=== PATIENT | female | born 1945 | race Caucasian/White ===

== ENCOUNTER → 2018-07-06 | Day surgery (SDC) | payer OTHER ==
[2018-06-26 15:42] LABS: BASOPHILS # (AUTO) 0.1 (0.0-0.1); BASOPHILS % 1.1 % (0.0-1.0); EOSINOPHILS # (AUTO) 0.2 (0.0-0.4); HEMATOCRIT 37.2 % (34.2-44.1); LYMPHOCYTES # (AUTO) 2.1 (1.0-3.2); LYMPHOCYTES % 22.8 % (18.0-39.1); MEAN CORPUSCULAR HEMOGLOBIN 29.4 pg (28-32); MEAN CORPUSCULAR HGB CONC 32.3 g/dL (31-35); MEAN CORPUSCULAR VOLUME 91.2 fL (81-99); MONOCYTES # (AUTO) 0.8 (0.2-0.8); MONOCYTES % 8.3 % (4.4-11.3); NEUTROPHILS % 65.5 % (38.7-80.0); PLATELET COUNT 224 x10e3/uL (140-360); RED BLOOD COUNT 4.08 x10e6/uL (3.6-5.1); RED CELL DISTRIBUTION WIDTH 13.5 % (11.7-14.4)
[2018-06-26 16:00] LABS: ANION GAP 15.6 mmol/L (8-16); CALCIUM 10.6 mg/dL (8.4-10.2); CREATININE, SERUM 1.01 mg/dL (0.57-1.11); POTASSIUM 4.6 mmol/L (3.5-5.1)
[~2018-07-06] MED LIST: AMLODIPINE BESYL5 MG PO; ASPIR 8181 MG PO; ASPIRIN81 MG PO; BENEFIBER1 EAC1 PO; BUPROPION XL150 MG PO; CENTRUM SILVER1 EAC1 PO; CHONDR SU A NA/HYALUR SOD 1 EACH KIT IO ONE; CITRACAL-VIT D1 EAC1 PO; CLARITIN10 M3 PO; CLARITIN10 MG PO; CYCLOPENTOLATE HCL 2% OPTH SOLN 2 ML BTL OP ONE; EPINEPHRINE HCL INJ 1 MG/ML AMP ONE; FENOFIBRATE PO; FENTANYL CITRATE/PF 100MCG/2 ML INJ ONE; FISH OIL 1,0001 EAC1 PO; FISH OIL 1,0001 EAC2 PO; GATIFLOXACIN(OPTH) 5 ML LIQD ONE; GYNODIOL0.5 MG PO; LEVSIN0.125 MG PO; LIDOCAINE 2% /EPINEPHRINE 20 ML SDV INJ ONE; LIDOCAINE 2%/ EPINEPHRINE 20ML MDV ONE; LIDOCAINE HCL 2% LOCAL INJ 5 ML SDV VIAL INJ ONE; LIDOCAINE HCL-PF 4% 40 MG/1 ML 5ML AMP ONE; LOSARTAN POTAS100 MG PO; MELOXICAM7.5 MG PO; MIDAZOLAM HCL 2 MG/2 ML VIAL ONE; MONTELUKAST SOD10 MG PO; MULTI-VITAMIN1 EACH PO; NAPROXEN250 MG PO; NAPROXEN500 M1 PO; PANTOPRAZOLE SO40 MG PO; PHENYLEPHRINE HCL 2 ML DROPS ONE; PILOCARPINE HCL(OPTH) 15 ML LIQD ONE; POVIDONE IODINE 5% (OPTH) 30 ML BTL ONE; PROBIOTIC & AC1 EACH PO; PROPOFOL IV EMULSION 10 MG/ML 20 ML VIAL ONE; SUCRALFATE1 GM PO; TIZANIDINE HCL4 MG PO; TOBRAMYCIN/DEXAMETHASONE(OPTH) 3.5 GM TUBE ONE; TRAMADOL HCL50 M1 PO; ULTRAM50 MG PO; VITAMIN B-121000 MCG PO; VITAMIN B12 PO; VITAMIN D250000 UNIT PO; Z.0.BENTYL20 MG PO; Z.0.CYMBALTA60 MG PO; Z.0.PRILOSEC40 MG PO; Z.0.TENORMIN25 MG PO; ZOLOFT100 MG PO; ZYRTEC10 MG PO
--- OUTSIDE RECORDS SUMMARY | 2018-07-06 08:06 | XMS REPORT | Clinical Summary ---
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 Active buPROPion SR (WELLBUTRIN Take 150 mg 0 SR) 150 MG 12 hr tablet by mouth 2 (two) times a day. Active losartan (COZAAR) 100 MG Take 100 mg 0 tablet by mouth nightly. Active loratadine (CLARITIN) 10 Take 10 mg by 0 mg tablet mouth daily. Active BACILLUS COAGULANS Take 1 tablet 0 (PROBIOTIC, B. COAGULANS, by mouth ORAL) daily. Active omega 2-uha-guz-fish oil Take 1 tablet 0 (FISH OIL) 360-1,200 mg by mouth 2 capsule,delayed (two) times a release(DR/EC) day. Active therapeutic multivitamin Take 1 tablet 0 (THERAGRAN) tablet by mouth daily. 08/22/2018 Active ergocalciferol (VITAMIN Take 1 12 capsule 3 D2) 50,000 unit capsule capsule 8 (50,000 Units total) by mouth once a week. Active pantoprazole (PROTONIX) Take 1 tablet 90 tablet 3 40 MG EC tablet (40 mg total) 8 by mouth daily. Active amLODIPine (NORVASC) 5 mg 1/2 tab daily 90 tablet 1 tabletIndications: x 1 week, 8 Essential hypertension increase to 1 tab daily if BP > 140/90 at home. For blood pressure 01/24/2019 Active fenofibrate (TRICOR) 145 Take 1 tablet 90 tablet 1 MG tablet (145 mg 8 total) by mouth daily. Active aspirin (ECOTRIN) 81 MG Take 81 mg by 0 enteric coated tablet mouth nightly. 02/14/2019 Active rosuvastatin (CRESTOR) 10 Take 1 tablet 30 tablet 11 MG tablet (10 mg total) 8 by mouth daily. Active cyanocobalamin, vitamin Take 1,000 0 B-12, (VITAMIN B-12 ORAL) mcg by mouth. Active montelukast (SINGULAIR) Take 10 mg by 0 10 mg tablet mouth nightly. 09/25/2018 Active traMADol (ULTRAM) 50 mg Take 1 tablet 90 tablet 2 tablet (50 mg total) 8 by mouth every 6 (six) hours as needed for moderate pain or severe pain for up to 180 days. 06/20/2019 Active hydrocortisone 1 % Apply 30 g 0 ointmentIndications: topically 2 8 Angular cheilitis (two) times a day. 06/20/2019 Active nystatin (MYCOSTATIN) Apply 30 g 0 100,000 unit/gram topically 2 8 ointmentIndications: (two) times a Angular cheilitis day. 08/12/2017 Discontinued ondansetron (ZOFRAN, Take 1 tablet 20 tablet 0 HYDROCHLORIDE,) 4 MG (4 mg total) 6 tabletIndications: Acute by mouth medial meniscus tear of every 8 left knee, subsequent (eight) hours encounter as needed for nausea or vomiting. 08/12/2017 Discontinued piroxicam (FELDENE) 20 MG TAKE ONE 30 capsule 0 capsule CAPSULE BY 7 MOUTH DAILY 08/12/2017 Discontinued gabapentin (NEURONTIN) Take 1 90 capsule 11 300 mg capsule capsule (300 7 mg total) by mouth 3 (three) times a day. 08/12/2017 Discontinued naproxen (NAPROSYN) 500 TAKE 1 60 tablet 0 MG tablet TABLET(500 7 MG) BY MOUTH TWICE DAILY 08/12/2017 Discontinued montelukast (SINGULAIR) Take 10 mg by 0 10 mg tablet mouth nightly. 08/12/2017 Discontinued fenofibrate micronized Take 130 mg 0 (ANTARA) 130 MG capsule by mouth daily before breakfast. 09/06/2017 Discontinued traMADol (ULTRAM) 50 mg Take 50 mg by 0 tablet mouth every 6 (six) hours as needed for moderate pain. 03/06/2018 Discontinued sucralfate (CARAFATE) 1 Take 1 g by 0 gram tablet mouth 4 (four) times a day. STATES NO LONGER TAKING THIS MED. 12/12/2017 Discontinued pantoprazole (PROTONIX) Take 40 mg by 0 40 MG EC tablet mouth daily. 03/06/2018 Discontinued methylcellulose, Take 2 0 laxative, (CITRUCEL) 500 tablets by mg tablet mouth 2 (two) times a day. STATES NO LONGER TAKING. 03/06/2018 Discontinued estradiol (ESTRACE) 1 MG Take 1 mg by 0 tablet mouth daily. STATES NO LONGER TAKING THIS MED. 03/06/2018 Discontinued cyanocobalamin 500 MCG Take 1,000 0 tablet mcg by mouth daily. 08/12/2017 Discontinued methocarbamol (ROBAXIN) TAKE 1 60 tablet 0 750 MG tablet TABLET(750 7 MG) BY MOUTH FOUR TIMES DAILY 08/19/2017 cefdinir (OMNICEF) 300 MG Take 1 14 capsule 0 capsule capsule (300 8 mg total) by mouth 2 (two) times a day for 7 days. 09/19/2017 Discontinued traMADol (ULTRAM) 50 mg Take 1 tablet 30 tablet 0 tabletIndications: Other (50 mg total) 8 chronic pain by mouth every 6 (six) hours as needed for moderate pain for up to 30 days. 12/12/2017 Discontinued fenofibrate micronized Take 130 mg 0 (ANTARA) 130 MG capsule by mouth daily before breakfast. 03/18/2018 traMADol (ULTRAM) 50 mg Take 1 tablet 90 tablet 5 tabletIndications: Other (50 mg total) 8 chronic pain by mouth every 8 (eight) hours as needed for moderate pain for up to 180 days. 03/13/2018 Discontinued SHINGRIX, PF, 50 mcg/0.5 0 mL suspension for 8 reconstitution IM injection 01/11/2018 Discontinued amLODIPine (NORVASC) 5 mg 1/2 tab daily 90 tablet 1 tabletIndications: x 1 week, 8 Essential hypertension increase to 1 tab daily if BP > 140/90 at home. For blood pressure 03/06/2018 Discontinued tiZANidine (ZANAFLEX) 4 1/2 - 1 tab 30 tablet 1 MG tabletIndications: nightly as 8 Lumbar radiculopathy needed for muscle spasms/back pain 01/24/2018 Discontinued fenofibrate micronized Take 1 90 capsule 1 (ANTARA) 130 MG capsule capsule (130 8 mg total) by mouth daily before breakfast. 03/13/2018 ciprofloxacin (CIPRO) 500 Take 1 tablet 14 tablet 0 MG tablet (500 mg 8 total) by mouth 2 (two) times a day for 7 days. 04/07/2018 Discontinued estradiol (ESTRACE) 1 MG Take 1 mg by 0 tablet mouth daily. 03/29/2018 Discontinued traMADol (ULTRAM) 50 mg Take 50 mg by 0 tablet mouth every 6 (six) hours as needed for moderate pain. 04/07/2018 Discontinued benzonatate (TESSALON 100-200 mg po 30 capsule 1 PERLES) 100 MG TID prn cough 8 capsuleIndications: Cough 05/14/2018 clonIDINE (CATAPRES) 0.1 Take 1 tablet 0 MG tablet (0.1 mg 8 total) by mouth every 6 (six) hours as needed for high blood pressure (from SBP >160) for up to 30 days. 05/14/2018 sennosides-docusate Take 2 120 tablet 0 sodium (SENNA WITH tablets by 8 DOCUSATE SODIUM) 8.6-50 mouth 2 (two) mg per tablet times a day for 30 days. 04/19/2018 acetaminophen-codeine Take 1 tablet 20 tablet 0 (TYLENOL WITH CODEINE #3) by mouth 8 300-30 mg per tablet every 4 (four) hours as needed for moderate pain for up to 5 days. 04/14/2018 Discontinued enoxaparin (LOVENOX) 40 Inject 0.4 mL 12 mL 0 mg/0.4 mL syringe (40 mg total) 8 under the skin daily for 30 days. 04/29/2018 enoxaparin (LOVENOX) 40 Inject 0.4 mL 5.6 mL 0 mg/0.4 mL syringe (40 mg total) 8 under the skin daily for 14 days. 05/09/2018 mupirocin (BACTROBAN) 2 % Apply 15 g 0 ointment topically 2 8 (two) times a day for 7 days. 06/30/2018 zolpidem (AMBIEN) 5 MG Take 1 tablet 30 tablet 0 tablet (5 mg total) 8 by mouth nightly as needed for sleep for up to 30 days. Status Hospital, Clinic, or Ordered Dose Route Frequency Start End Date Other Facility Date Administered Medication Ended ipratropium-albuterol 3 mL nebu once 08/12/19 ([facility]) 0.5-2.5 mg/mL 18 8 nebulizer solution 3 mLIndications: Bronchitis Active Problems Problem Noted Date Screening for breast cancer 05/14/2018 S/P TKR (total knee replacement) 04/12/2018 OA (osteoarthritis) of knee 04/11/2018 Left foot pain 04/10/2018 Urinary tract infection without hematuria 04/07/2018 Abrasion 03/21/2018 Cataracta 09/19/2017 Lumbar radiculopathy 11/10/2016 Complex tear of lateral meniscus of left knee as current injury 06/09/2016 Acute medial meniscus tear of left knee 05/20/2016 Left knee pain 05/10/2016 Primary osteoarthritis of left knee 05/10/2016 Encounters Care Team Description Date Type Specialty Darshan Rodriges MD Vitamin D deficiency (Primary Dx); Other iron deficiency anemia; Abnormal blood chemistry; Angular cheilitis 06/20/2018 Office Visit Internal Medicine Darshan Rodriges MD 05/31/2018 Hospital Radiology Encounter Darshan Rodriges MD 05/31/2018 Hospital Radiology Encounter Surjit Felton Jr., MD Status post total left knee replacement (Primary Dx) 05/31/2018 Office Visit Orthopedic Surgery Surjit Felton Jr., MD 05/31/2018 Orders Only Orthopedic Surgery Darshan Rodriges MD Abnormal screening mammogram 05/30/2018 Hospital Radiology Encounter Darshan Rodriges MD Abnormal screening mammogram 05/30/2018 Hospital Radiology Encounter Darshan Rodriges MD Abnormal findings on diagnostic imaging of breast (Primary Dx) 05/30/2018 Transcribe Access Orders Yvonne Blanca MA Status post total left knee replacement (Primary Dx) 05/30/2018 Orders Only Orthopedic Surgery Darshan Rodriges MD Abnormal screening mammogram (Primary Dx) 05/22/2018 Orders Only Internal Medicine Darshan Rodriges MD Screening for breast cancer 05/19/2018 Hospital Radiology Encounter Darshan Rodriges MD Screening for breast cancer (Primary Dx) 05/14/2018 Orders Only Internal Medicine Darshan Rodriges MD 05/12/2018 Telephone Internal Medicine Darshan Rodriges MD 05/12/2018 Telephone Internal Medicine Darshan Rodriges MD Chronic pain of left knee (Primary Dx); Nasal ulcer; Acute posthemorrhagic anemia 05/02/2018 Office Visit Internal Medicine Zari Stanton FNP Status post total left knee replacement (Primary Dx) 05/01/2018 Office Visit Orthopedic Surgery Yvonne Blanca MA Status post total left knee replacement (Primary Dx) 05/01/2018 Orders Only Orthopedic Surgery Gagan Cooper MD 04/11/2018 Anesthesia General Surgery Event Surjit Felton Jr., MD ARTHROPLASTY, KNEE, TOTAL LEFT 04/11/2018 Surgery General Surgery Surjit Felton Jr., MD Osteoarthritis of knee, unspecified laterality, unspecified osteoarthritis type (Primary Dx) 04/11/2018 Hospital General Surgery - Encounter 04/14/2018 Darshan Rodriges MD Left foot pain (Primary Dx) 04/10/2018 Orders Only Internal Medicine Surjit Felton Jr., MD Preop testing (Primary Dx) 04/07/2018 Pre-Admit Pre-Admission Testing Testing Appointment Zari Stanton FNP Urinary tract infection without hematuria, site unspecified (Primary Dx); Chronic pain of left knee; Primary osteoarthritis of left knee 04/07/2018 Office Visit Orthopedic Surgery Darshan Rodriges MD Left foot pain 04/03/2018 Hospital Radiology Encounter Darshan Rodriges MD Left foot pain (Primary Dx); Abrasion of right knee, initial encounter; Recurrent falls while walking; Cough 03/29/2018 Office Visit Internal Medicine Surjit Felton Jr., MD Abrasion (Primary Dx) 03/21/2018 Office Visit Ortho Sports Medicine Surjit Felton Jr., MD 03/17/2018 Hospital General Surgery Encounter Whit Lawrence, WILL 03/17/2018 Telephone Orthopedic Surgery Surjit Felton Jr., MD Primary osteoarthritis of left knee (Primary Dx) 03/16/2018 Orders Only Orthopedic Surgery Whit Lawrence, WILL 03/15/2018 Telephone Orthopedic Surgery Yvette Muro MD 03/13/2018 Anesthesia General Surgery Event Surjit Felton Jr., MD Preoperative testing 03/13/2018 Hospital General Surgery Encounter Surjit Felton Jr., MD 03/13/2018 Surgery General Surgery Whit Lawrence, WILL 03/07/2018 Telephone Orthopedic Surgery Whit Lawrence, WILL 03/07/2018 Telephone Orthopedic Surgery Surjit Felton Jr., MD Preoperative testing (Primary Dx); Pre-op evaluation; Essential hypertension; Mixed hyperlipidemia; Former tobacco use 03/06/2018 Pre-Admit Pre-Admission Testing Testing Appointment Zari Stanton FNP Primary osteoarthritis of left knee (Primary Dx) 03/06/2018 Office Visit Orthopedic Surgery Surjit Felton Jr., MD 03/06/2018 Hospital Radiology Encounter Lisa, Keith, WILL 03/06/2018 Telephone Internal Medicine Darshan Rodriges MD 02/27/2018 Telephone Internal Medicine Darshan Rodriges MD 02/23/2018 Telephone Internal Medicine Darshan Rodriges MD 02/17/2018 Telephone Internal Medicine Whit Lawrence, WILL 02/16/2018 Telephone Orthopedic Surgery Darshan Rodriges MD Pratt, Craig M., MD Abnormal Doppler ultrasound of carotid artery; Preop cardiovascular exam; Essential hypertension 02/14/2018 Office Visit Cardiology Darshan Rodriges MD 01/24/2018 Orders Only Internal Medicine Darshan Rodriges MD 01/24/2018 Telephone Internal Medicine Darshan Rodriges MD Abnormal Doppler ultrasound of carotid artery (Primary Dx); Impaired exercise tolerance; Preop cardiovascular exam; Essential hypertension 01/21/2018 Orders Only Internal Medicine Darshan Rodriges MD Essential hypertension; Mixed hyperlipidemia; Pre-op evaluation 01/18/2018 Hospital Procedural Cardiology Encounter Darshan Rodriges MD Pre-op evaluation; Essential hypertension; Mixed hyperlipidemia; Former tobacco use 01/18/2018 Hospital Procedural Cardiology Encounter Darshan Rodriges MD Pre-op evaluation; Essential hypertension; Mixed hyperlipidemia; Former tobacco use 01/18/2018 Hospital Radiology Encounter Lisa, KeithWILL 01/16/2018 Telephone Internal Medicine Darshan Rodriges MD Essential hypertension (Primary Dx); Mixed hyperlipidemia; Pre-op evaluation 01/15/2018 Orders Only Internal Medicine Darshan Rodriges MD 01/13/2018 Telephone Internal Medicine Darshan Rodriges MD Preop examination (Primary Dx); Essential hypertension, malignant; Mixed hyperlipidemia; Personal history of tobacco use, presenting hazards to health 01/12/2018 Transcribe Access Orders Darshan Rodriges MD Pre-op evaluation (Primary Dx); Essential hypertension; Mixed hyperlipidemia; Vitamin D deficiency; Former tobacco use 01/11/2018 Office Visit Internal Medicine Teodoro Dillard MD Serrato, Juan Antonio Jr., MD Primary osteoarthritis of left knee (Primary Dx) 01/04/2018 Office Visit Ortho Sports Medicine Teodoro Dillard MD Canceled (Department/Provider) 12/29/2017 Office Visit Sports Medicine Teri Knight MA Left knee pain, unspecified chronicity (Primary Dx) 12/29/2017 Orders Only Ortho Sports Medicine Darshan Rodriges MD 12/12/2017 Refill Internal Medicine Teodoro Dillard MD Primary osteoarthritis of left knee (Primary Dx) 12/06/2017 Clinical Sports Medicine Support Teodoro Dillard MD Strain of lumbar region, initial encounter (Primary Dx); Primary osteoarthritis of left knee 11/29/2017 Clinical Sports Medicine Support Teodoro Dillard MD Primary osteoarthritis of left knee (Primary Dx) 11/22/2017 Clinical Sports Medicine Teodoro Munson MD 11/21/2017 Telephone Orthopedic Surgery Teodoro Dillard MD Lumbar strain, initial encounter (Primary Dx); Primary osteoarthritis of left knee 11/17/2017 Office Visit Sports Medicine Tahir Nowak MD 11/05/2017 Documentation Gastroenterology Darshan Rodriges MD Lumbar radiculopathy 10/31/2017 Hospital Radiology Encounter Janina Kat MA 10/31/2017 Telephone Darshan Watson MD 10/31/2017 Orders Only Internal Medicine Darshan Rodriges MD Lumbar radiculopathy (Primary Dx); Essential hypertension 10/26/2017 Office Visit Internal Medicine Keith Gonzalez MA 10/26/2017 Orders Only Internal Medicine Janina Kat MA 10/20/2017 Telephone Gastroenterology Darshan Rodriges MD 10/20/2017 Telephone Internal Medicine Edith Dutton MA 10/20/2017 Telephone Orthopedic Surgery Darshan Rodriges MD Kaplan, Brian H., MD Gastroesophageal reflux disease without esophagitis; History of colon polyps; Screen for colon cancer 10/19/2017 Office Visit Gastroenterology Darshan Rodriges MD Primary osteoarthritis of left knee (Primary Dx); Other chronic pain; Other age-related cataract of both eyes; Lumbar radiculopathy 09/19/2017 Office Visit Internal Medicine Darshan Rodriges MD Other chronic pain (Primary Dx) 09/06/2017 Refill Internal Medicine Darshan Rodriges MD 08/30/2017 Telephone Internal Medicine Darshan Rodriges MD 08/22/2017 Orders Only Internal Medicine Darshan Rodriges MD Medicare annual wellness visit, subsequent (Primary Dx); Screen for colon cancer; History of colon polyps; Gastroesophageal reflux disease without esophagitis; Bronchitis; Long-term use of high-risk medication; Screening for diabetes mellitus; Abnormal blood chemistry; Family history of heart disease; Screening for lipoid disorders; Essential hypertension 08/12/2017 Office Visit Internal Medicine after 07/05/2017 Family History Medical History Relation Name Comments Cancer Brother leukemia Colon polyps Father Edward Anders Cancer Maternal Aunt Cancer Maternal Uncle Cancer Mother lung Relation Name Status Comments Brother Alive leukemia Father Edyves [place] Anders Maternal Aunt lung cancer Maternal Uncle lung cancer Mother lung Social History Date Tobacco Use Types Packs/Day Years Used 12/11/1959 - 01/03/2011 Former Smoker Cigarettes 1 45 Smokeless Tobacco: Never Used Alcohol Use Drinks/Week oz/Week Comments Yes OCCASS. WINE Sex Assigned at Date Recorded Not on file Industry Job Start Date Occupation Not on file Not on file Not on file Travel End Travel History Travel Start No recent travel history available. Last Filed Vital Signs Time Taken Vital Sign Reading 06/20/2018 11:54 AM [employer]UEL CELL BUILDER Blood Pressure 148/74 06/20/2018 11:54 AM FUEL CELL BUILDER Pulse 76 04/14/2018 4:07 PM CDT Temperature 36.8 C (98.2 F) 06/20/2018 11:54 AM FUEL CELL BUILDER Respiratory Rate 20 06/20/2018 11:54 AM FUEL CELL BUILDER Oxygen Saturation 98% - Inhaled Oxygen - Concentration 06/20/2018 11:54 AM FUEL CELL BUILDER Weight 77.1 kg (170 lb) 06/20/2018 11:54 AM FUEL CELL BUILDER Height 172.7 cm (5' 8") 06/20/2018 11:54 AM FUEL CELL BUILDER Body Mass Index 25.85 Plan of Treatment Care Team Description Date Type Specialty Surjit Felton Jr., MD [address] [facility] [address] [place] [address] [phone] 07/12/2018 Office Visit Orthopedic Surgery Health Maintenance Due Date Last Done Comments SHINGRIX VACCINE (1 of 2) 1996 PNEUMOCOCCAL-13 2011 BREAST CANCER SCREENING 05/30/2020 05/30/2018, 05/30/2018, 05/19/2018, Additional history exists COLON CANCER SCREENING 08/09/2024 08/09/2014 ZOSTER VACCINE Completed 03/08/2017 PNEUMOCOCCAL Completed 11/07/2017 POLYSACCHARIDE VACCINE AGE 65 AND OVER INFLUENZA VACCINE Completed 03/29/2018, 12/21/2017, 04/08/2017, Additional history exists Implants Device Identifier Shelf Expiration Date Model / Serial / Lot Implanted Type Area Manufactur er 01/01/2028 [id number] / / [id number] Journey Ii Bcs Femoral Oxin Lt Sz 5 IPM Left: Knee CHARLES & - [id number] IMPLANT NEPHEW Implanted: Qty: 1 on 04/11/2018 by DEVICES Surjit Trinidad Jr., MD 01/18/2028 [id number] / / [id number] Journey Ii Bcs Xlpe Art Insert Sz IPM Left: Knee CHARLES & 3-4 Lt 9mm - [id number] IMPLANT NEPHEW Implanted: Qty: 1 on 04/11/2018 by DEVICES ORTHOPAEDSurjit Emmanuel Jr., MD 05/01/2027 [id number] / / [id number] Patella Knee Rsrfcng 32mm Std Knee Joint Left: Knee CHARLES AND Monique - [id number] Implants NEPHEW Implanted: Qty: 1 on 04/11/2018 by ORTHOPEDIC Surjit Felton Jr., MD S 02/12/2028 [id number] / / [id number] Baseplate Tib Journey N-Por Lt Sz 3 Knee Joint Left: Knee CHARLES AND - [id number] Implants NEPHEW Implanted: Qty: 1 on 04/11/2018 by ORTHOPEDIC Surjit Felton Jr., MD S 07/07/2019 [id number] / / [id number] Cement Bone Gm Hiviscocty 40gr Surgical Left: Knee DEPUY Smartmix - [id number] Bone ORTHO-KNEE Implanted: Qty: 2 on 04/11/2018 by Cement S Surjit Felton Jr., MD Procedures Comments Procedure Name Priority Date/Time Associated Diagnosis VITAMIN D 25 HYDROXY Routine 06/20/2018 Vitamin D deficiency LEVEL 12:28 PM [employer]UEL [employer]ILDER Abnormal blood chemistry COMPREHENSIVE METABOLIC Routine 06/20/2018 Abnormal blood chemistry PANEL 12:28 PM FUEL CELL BUILDER CRP HIGH SENSITIVITY Routine 06/20/2018 Abnormal blood chemistry 12:28 PM FUEL CELL BUILDER FERRITIN LEVEL Routine 06/20/2018 Other iron deficiency 12:28 PM FUEL CELL BUILDER anemia Abnormal blood chemistry CBC WITH PLATELET AND Routine 06/20/2018 Other iron deficiency DIFFERENTIAL 12:28 PM FUEL CELL BUILDER anemia Abnormal blood chemistry XR KNEE 1 OR 2 VW LEFT Routine 05/31/2018 Status post total left 11:23 AM CDT knee replacement US BREAST COMPLETE LEFT Routine 05/30/2018 Abnormal screening 3:02 PM CDT mammogram MAMMO BREAST DIAGNOSTIC Routine 05/30/2018 Abnormal screening TOMOSYNTHESIS LEFT 2:22 PM CDT mammogram MAMMO BREAST SCREEN Routine 05/19/2018 Screening for breast TOMOSYNTHESIS BILATERAL 11:32 AM CDT cancer ZZESTIMATED GFR Routine 04/13/2018 4:15 AM CDT BASIC METABOLIC PANEL Routine 04/13/2018 4:15 AM CDT HC COMPLETE BLD COUNT Routine 04/13/2018 W/AUTO DIFF 4:15 AM CDT ZZESTIMATED GFR Routine 04/12/2018 5:00 AM CDT BASIC METABOLIC PANEL Routine 04/12/2018 5:00 AM CDT HC COMPLETE BLD COUNT Routine 04/12/2018 W/AUTO DIFF 5:00 AM CDT XR KNEE 1 OR 2 VW LEFT Routine 04/11/2018 5:20 PM CDT SURGICAL PATHOLOGY Routine 04/11/2018 REQUEST 1:19 PM CDT WY AN PERIPHERAL BLOCK Routine 04/11/2018 PROCEDURE FOR PAIN 12:39 PM CDT Procedure Note - Gagan Cooper MD - 04/11/2018 12:39 PM CDT Peripheral Block Performed by: GAGAN COOPER Authorized by: GAGAN COOPER Patient Location: Holding area Reason for Block: at surgeon's request, post-op pain management , procedure for pain Staff: Anesthesio logist: GAGAN COOPER Performed by: Anesthesio logist Preprocedu re: patient identified , IV checked, site and side verified, risks and benefits discussed, procedure verified, surgical consent complete, patient position confirmed, monitors and equipment checked, pre-op evaluation complete and site marked Peripheral Nerve Block: Patient Position: Supine Prep: ChloraPrep Monitoring : Blood pressure monitoring , continuous pulse oximetry and heart rate Block Type: Femoral Laterality : Left Injection Technique: Single injection Procedures : ultrasound guided and nerve stimulator Local Infiltrati on (See MAR for details): Ropivacain e Needle: Needle Type: Short-beve l Needle Gauge: 22 G Needle Length: 4 in Assessment : Injection Assessment : Visualized needle/loc al anesthetic surroundin g nerve, visualized pertinent vascular structures and nerves, needle tip visualized at all times during injection of medication , no symptoms of intraneura l/intraven ous injection and intermitte nt aspiration during local anesthetic administra tion Paresthesi a Pain: None Heart Rate Change: No Slow Fractionat ed Injection: Yes Block outcome: No apparent complicati ons, patient comfortabl e and patient tolerated procedure well WY AN PERIPHERAL BLOCK Routine 04/11/2018 POST-OP PAIN 12:39 PM CDT Procedure Note - Gagan Cooper MD - 04/11/2018 12:39 PM CDT Peripheral Block Performed by: GAGAN COOPER Authorized by: GAGAN COOPER Patient Location: Holding area Reason for Block: at surgeon's request, post-op pain management , procedure for pain Staff: Anesthesio logist: GAGAN COOPER Performed by: Anesthesio logist Preprocedu re: patient identified , IV checked, site and side verified, risks and benefits discussed, procedure verified, surgical consent complete, patient position confirmed, monitors and equipment checked, pre-op evaluation complete and site marked Peripheral Nerve Block: Patient Position: Supine Prep: ChloraPrep Monitoring : Blood pressure monitoring , continuous pulse oximetry and heart rate Block Type: Femoral Laterality : Left Injection Technique: Single injection Procedures : ultrasound guided and nerve stimulator Local Infiltrati on (See MAR for details): Ropivacain e Needle: Needle Type: Short-beve l Needle Gauge: 22 G Needle Length: 4 in Assessment : Injection Assessment : Visualized needle/loc al anesthetic surroundin g nerve, visualized pertinent vascular structures and nerves, needle tip visualized at all times during injection of medication , no symptoms of intraneura l/intraven ous injection and intermitte nt aspiration during local anesthetic administra tion Paresthesi a Pain: None Heart Rate Change: No Slow Fractionat ed Injection: Yes Block outcome: No apparent complicati ons, patient comfortabl e and patient tolerated procedure well ARTHROPLASTY, KNEE, TOTAL 04/11/2018 OA (osteoarthritis) of 11:40 AM CDT knee Special Needs NEEDS DEPUY SIGMA, REGIONAL BLOCK (ADDUCTOR CANAL BLOCK WHEN POSSIBLE), SUPINEJUMB O NOTIFIED OF CASE SCHEDULED FOR 1400 MW 04/04JUMBO NOTIFIED OF TIME CHANGE TO 1130 MW 04/06Needs changed to SN cristopher with SN notified for case on 04/04 at 1 140 MW URINALYSIS SCREEN AND STAT 04/11/2018 MICROSCOPY, WITH REFLEX 10:22 AM CDT TO CULTURE URINE CULTURE STAT 04/11/2018 10:22 AM CDT ECG 12-LEAD Routine 04/07/2018 Preop testing 3:20 PM CDT ZZESTIMATED GFR Routine 04/07/2018 3:15 PM CDT TYPE AND SCREEN Routine 04/07/2018 Preop testing 3:15 PM CDT URINALYSIS SCREEN AND Routine 04/07/2018 Preop testing MICROSCOPY, WITH REFLEX 3:15 PM CDT TO CULTURE PROTHROMBIN TIME WITH INR Routine 04/07/2018 Preop testing 3:15 PM CDT PARTIAL THROMBOPLASTIN Routine 04/07/2018 Preop testing TIME (PTT) 3:15 PM CDT COMPREHENSIVE METABOLIC Routine 04/07/2018 Preop testing PANEL 3:15 PM CDT HC COMPLETE BLD COUNT Routine 04/07/2018 Preop testing W/AUTO DIFF 3:15 PM CDT GRAM STAIN Routine 04/07/2018 3:15 PM CDT URINE CULTURE Routine 04/07/2018 3:15 PM CDT MRSA SCREEN CULTURE Routine 04/07/2018 Preop testing 3:15 PM CDT XR FOOT 3+ VW LEFT Routine 04/03/2018 Left foot pain 12:40 PM CDT TYPE AND SCREEN Routine 03/17/2018 6:50 AM CDT WY AN PERIPHERAL BLOCK Routine 03/13/2018 POST-OP PAIN 7:02 AM CDT Procedure Note - Yvette Muro MD - 03/13/2018 7:02 AM CDT Peripheral Block Performed by: YVETTE MURO Authorized by: YVETTE MURO Patient Location: Holding area Start Time: 03/13/2018 7:04 AM End Time: 03/13/2018 7:10 AM Reason for Block: post-op pain management Staff: Bonilla portillot: YVETTE MURO Performed by: Anesthesio logist Preprocedu re: patient identified , IV checked, site and side verified, risks and benefits discussed, procedure verified, surgical consent complete, patient position confirmed, monitors and equipment checked, pre-op evaluation complete and site marked Time Out Performed: 03/13/2018 7:04 AM Peripheral Nerve Block: Patient Position: Supine Prep: ChloraPrep Monitoring : Blood pressure monitoring , continuous pulse oximetry and heart rate Block Type: Femoral Laterality : Left Injection Technique: Single injection Procedures : ultrasound guided and nerve stimulator Local Infiltrati on (See MAR for details): Bupivacain e Loss of Twitch: 0.5 mA Needle: Needle Type: Short-beve l Needle Gauge: 21 G Needle Length: 4 in Assessment : Injection Assessment : Visualized needle/loc al anesthetic surroundin g nerve, visualized pertinent vascular structures and nerves, needle tip visualized at all times during injection of medication , intermitte nt aspiration during local anesthetic administra tion and no symptoms of intraneura l/intraven ous injection Heart Rate Change: No Slow Fractionat ed Injection: Yes Block outcome: No apparent complicati ons and patient tolerated procedure well TYPE AND SCREEN Routine 03/06/2018 Preoperative testing 3:54 PM CDT XR CHEST 2 VW Routine 03/06/2018 Preoperative testing 2:05 PM CDT ECG 12-LEAD Routine 03/06/2018 Preoperative testing 1:09 PM CDT ZZESTIMATED GFR Routine 03/06/2018 12:57 PM CDT COMPREHENSIVE METABOLIC Routine 03/06/2018 Preoperative testing PANEL 12:57 PM CDT URINALYSIS SCREEN AND Routine 03/06/2018 Preoperative testing MICROSCOPY, WITH REFLEX 12:57 PM CDT TO CULTURE PARTIAL THROMBOPLASTIN Routine 03/06/2018 Preoperative testing TIME (PTT) 12:57 PM CDT PROTHROMBIN TIME WITH INR Routine 03/06/2018 Preoperative testing 12:57 PM CDT HC COMPLETE BLD COUNT Routine 03/06/2018 Preoperative testing W/AUTO DIFF 12:57 PM CDT GRAM STAIN Routine 03/06/2018 12:57 PM CDT URINE CULTURE Routine 03/06/2018 12:57 PM CDT MRSA SCREEN CULTURE Routine 03/06/2018 Preoperative testing 12:57 PM CDT ECG 12-LEAD Routine 02/14/2018 Preop cardiovascular exam 1:09 PM CDT Essential hypertension US CAROTID DUPLEX Routine 01/18/2018 Essential hypertension BILATERAL 1:30 PM CDT Mixed hyperlipidemia Pre-op evaluation ECHOCARDIOGRAM 2D Routine 01/18/2018 Pre-op evaluation COMPLETE W MMODE SPECTRAL 1:14 PM CDT Essential hypertension COLOR DOPPLER (23614) Mixed hyperlipidemia Former tobacco use XR CHEST 2 VW Routine 01/18/2018 Pre-op evaluation 12:38 PM CDT Essential hypertension Mixed hyperlipidemia Former tobacco use HOMOCYSTINE, PLASMA Routine 01/12/2018 Pre-op evaluation 8:16 AM CDT Essential hypertension Former tobacco use VITAMIN B12 LEVEL Routine 01/12/2018 Pre-op evaluation 8:16 AM CDT Essential hypertension Former tobacco use VITAMIN D 25 HYDROXY Routine 01/12/2018 Pre-op evaluation LEVEL 8:16 AM CDT Vitamin D deficiency PARTIAL THROMBOPLASTIN Routine 01/12/2018 Pre-op evaluation TIME (PTT) 8:16 AM CDT PROTHROMBIN TIME WITH INR Routine 01/12/2018 Pre-op evaluation 8:16 AM CDT COMPREHENSIVE METABOLIC Routine 01/12/2018 Pre-op evaluation PANEL 8:16 AM CDT Essential hypertension CARDIO IQ(R) ADVANCED Routine 01/12/2018 Pre-op evaluation LIPID PANEL AND 8:16 AM CDT Mixed hyperlipidemia INFLAMMATION PANEL CBC WITH PLATELET AND Routine 01/12/2018 Pre-op evaluation DIFFERENTIAL 8:16 AM CDT ECG 12-LEAD Routine 01/11/2018 Pre-op evaluation 1:06 PM CDT XR KNEE 4+ VW LEFT Routine 12/30/2017 Left knee pain, 2:15 PM CDT unspecified chronicity WY ARTHROCENTESIS Routine 12/06/2017 Primary osteoarthritis of ASPIR&/INJ MAJOR JT/BURSA 1:15 PM CDT left knee W/O US WY ARTHROCENTESIS Routine 11/29/2017 Primary osteoarthritis of ASPIR&/INJ MAJOR JT/BURSA 1:15 PM CDT left knee W/O US WY ARTHROCENTESIS Routine 11/22/2017 Primary osteoarthritis of ASPIR&/INJ MAJOR JT/BURSA 1:15 PM CDT left knee W/O US XR LUMBAR SPINE COMPLETE Routine 10/31/2017 Lumbar radiculopathy 4+ VW 12:37 PM CDT XR LUMBAR SPINE COMPLETE Routine 10/31/2017 4+ VW URINALYSIS, COMPLETE, Routine 10/26/2017 Essential hypertension WITH REFLEX TO CULTURE 3:09 PM CDT URINE CULTURE Routine 10/26/2017 3:09 PM CDT MEASURE BLOOD PRESSURE Routine 10/26/2017 VITAMIN D 25 HYDROXY Routine 08/17/2017 Medicare annual wellness LEVEL 7:22 AM FUEL CELL BUILDER visit, subsequent Long-term use of high-risk medication VITAMIN B12 LEVEL Routine 08/17/2017 Medicare annual wellness 7:22 AM FUEL CELL BUILDER visit, subsequent Long-term use of high-risk medication THYROID STIMULATING Routine 08/17/2017 Medicare annual wellness HORMONE 7:22 AM FUEL CELL BUILDER visit, subsequent Essential hypertension URINALYSIS, COMPLETE, Routine 08/17/2017 Medicare annual wellness WITH REFLEX TO CULTURE 7:22 AM FUEL CELL BUILDER visit, subsequent Essential hypertension HEMOGLOBIN A1C Routine 08/17/2017 Medicare annual wellness 7:22 AM FUEL CELL BUILDER visit, subsequent Screening for diabetes mellitus Abnormal blood chemistry LIPID PANEL Routine 08/17/2017 Medicare annual wellness 7:22 AM FUEL CELL BUILDER visit, subsequent Family history of heart disease Screening for lipoid disorders COMPREHENSIVE METABOLIC Routine 08/17/2017 Medicare annual wellness PANEL 7:22 AM FUEL CELL BUILDER visit, subsequent Essential hypertension CBC WITH PLATELET AND Routine 08/17/2017 Medicare annual wellness DIFFERENTIAL 7:22 AM FUEL CELL BUILDER visit, subsequent Gastroesophageal reflux disease without esophagitis Bronchitis after 07/05/2017 Results * Vitamin D 25 hydroxy level (06/20/2018 12:28 PM FUEL CELL BUILDER) Only the most recent of 3 results within the time period is included. Vitamin D, 25-hydroxy 40 30 - 100 ng/mL RV ID Comment: [place] Vitamin D Status 25-OH Vitamin D: Deficiency: <20 ng/mL Insufficiency: 20 - 29 ng/mL Optimal: > or=30 ng/mL For 25-OH Vitamin D testing on patients on D2-supplementation and patients for whom quantitation of D2 and D3 fractions is required, the QuestAssureD(TM) 25-OH VIT D, (D2,D3), LC/MS/MS is recommended: order code 97940 (patients >2yrs). For more information on this test, go to: http://education.[employer].com/faq/DHE434 (This link is being provided for informational/educational purposes only.) Specimen Blood Narrative Performed At FASTING:UNKNOWN [facility] FASTING: UNKNOWN Resulting Agency Comment Performing Organization Information: Site ID: [id number] Name: [facility] Address: [address] [place] [id number] Director: Janiya Dias Performing Organization Address City/State/Zipcode Phone Number [facility] [address] [address] * CBC with platelet and differential (06/20/2018 12:28 PM FUEL CELL BUILDER) Only the most recent of 7 results within the time period is included. WBC 8.3 3.8 - 10.8 Thousand/uL RV ID [place] RBC 4.21 3.80 - 5.10 Million/uL RV ID [place] HGB 12.2 11.7 - 15.5 g/dL RV ID [place] HCT 37.4 35.0 - 45.0 % RV ID [place] MCV 88.8 80.0 - 100.0 fL RV ID [place] MCH 29.0 27.0 - 33.0 pg RV ID [place] MCHC 32.6 32.0 - 36.0 g/dL RV ID [place] RDW 13.1 11.0 - 15.0 % RV ID [place] Platelet count 217 140 - 400 Thousand/uL RV ID [place] MPV 12.2 7.5 - 12.5 fL RV ID [place] Neutrophils, absolute 5,876 1,500 - 7,800 cells/uL RV ID [place] Lymphocytes, absolute 1,602 850 - 3,900 cells/uL RV ID [place] Monocytes, absolute 589 200 - 950 cells/uL RV ID [place] Eosinophils, absolute 141 15 - 500 cells/uL RV ID [place] Basophils, absolute 91 0 - 200 cells/uL RV ID [place] Neutrophils 70.8 % RV ID [place] Lymphocytes 19.3 % RV ID [place] Monocytes 7.1 % RV ID [place] Eosinophils 1.7 % RV ID [place] Basophils + RC 1.1 % RV ID [place] Specimen Blood Narrative Performed At FASTING:UNKNOWN [facility] FASTING: UNKNOWN Resulting Agency Comment Performing Organization Information: Site ID: [id number] Name: [facility] Address: [address] [place] [id number] Director: Janiya Dias Performing Organization Address City/State/Zipcode Phone Number [facility] [place] [phone] * CRP high sensitivity (06/20/2018 12:28 PM FUEL CELL BUILDER) CRP, high sensitivity 2.9 mg/L [facility] Comment: [facility] Average relative II cardiovascular risk according to AHA/CDC guidelines. For ages >17 Years: hs-CRP mg/LRisk According to AHA/CDC Guidelines <1.0 Lower relative cardiovascular risk. 1.0-3.0Average relative cardiovascular risk. 3.1-10.0 Higher relative cardiovascular risk. Consider retesting in 1 to 2 weeks to exclude a benign transient elevation in the baseline CRP value secondary to infection or inflammation. >10.0Persisten t elevation, upon retesting, may be associated with infection and inflammation. Specimen Blood Narrative Performed At FASTING:UNKNOWN [facility] FASTING: UNKNOWN Resulting Agency Comment Performing Organization Information: Site ID: [id number] Name: [facility] Address: [address] [place] [id number] Director: Dr. Alphonse Bain Performing Organization Address [facility] Phone Number [facility] [address] [address] II * Ferritin level (06/20/2018 12:28 PM FUEL CELL BUILDER) Ferritin level 51 20 - 288 ng/mL [facility] [place] Specimen Blood Narrative Performed At FASTING:UNKNOWN [facility] FASTING: UNKNOWN Resulting Agency Comment Performing Organization Information: Site ID: [id number] Name: [facility] Address: [address] [place] [phone] Director: Janiya Dias Performing Organization Address [facility] Phone Number [facility] [address] [place] [phone] * Comprehensive metabolic panel (06/20/2018 12:28 PM FUEL CELL BUILDER) Only the most recent of 5 results within the time period is included. Glucose 87 65 - 99 mg/dL RV ID Comment: [place] Fasting reference interval BUN, whole blood 25 7 - 25 mg/dL RV ID [place] Creatinine 0.98 (H) 0.60 - 0.93 mg/dL RV ID Comment: [place] For patients >49 years of age, the reference limit for Creatinine is approximately 13% higher for people identified as -[place]. EGFR Non-Afr. [place] 58 (L) > OR=60 mL/min/1.73m2 RV ID [place] EGFR 67 > OR=60 mL/min/1.73m2 RV ID [place] BUN/creatinine ratio 26 (H) 6 - 22 (calc) RV ID [place] Sodium 141 135 - 146 mmol/L RV ID [place] Potassium 4.3 3.5 - 5.3 mmol/L RV ID [place] Chloride 103 98 - 110 mmol/L RV ID [place] CO2 31 20 - 32 mmol/L [facility] Calcium 10.6 (H) 8.6 - 10.4 mg/dL [facility] Protein 7.0 6.1 - 8.1 g/dL [facility] Albumin, S 4.4 3.6 - 5.1 g/dL [facility] Globulin, total 2.6 1.9 - 3.7 g/dL (calc) [facility] Albumin/globulin ratio 1.7 1.0 - 2.5 (calc) [facility] Total bilirubin 0.5 0.2 - 1.2 mg/dL [facility] Alkaline phosphatase 50 33 - 130 U/L [facility] AST 18 10 - 35 U/L [facility] ALT 12 6 - 29 U/L [facility] Specimen Blood Narrative Performed At FASTING:UNKNOWN [facility] FASTING: UNKNOWN Resulting Agency Comment Performing Organization Information: Site ID: [id number] Name: [facility] Address: [address] [place] [phone] Director: Janiya Dias Performing Organization Address [facility] Phone Number [facility] [employer] [place] [phone] * XR Knee 1 Or 2 Vw Left (05/31/2018 11:23 AM CDT) Only the most recent of 2 results within the time period is included. Narrative Performed At [facility] Clinical: knee replacement Comparison: 04/11/18 Impression : s/p TKA without acute complication. Performing Organization Address [facility] Phone Number [facility] [address] [place] [address] * US Breast Complete Left (05/30/2018 3:02 PM CDT) Addenda Addendum by Katie Tamayo MD on 05/31/2018 4:11 PM ADDENDUM #1 Prior outside comparison mammograms dated 05/27/2017 and was provided The vague architectural distortion in the left upper-outer quadrant is likely related to postoperative changes as it was visualized on previous examinations. The dominant mass in the left superior breast was partially visualized on the 2014 examination but definitely on the 2016 examination. Given the more than two-year stability, this mass is probably benign. However, given that the other masses were only visualized on ultrasound, short interval follow-up with a left diagnostic mammogram and ultrasound in 6 months is recommended to ensure stability. BI-RADS 3: Probably benign. Narrative Performed At PROCEDURE: MAMMO BREAST DIAGNOSTIC TOMOSYNTHESIS LEFT, US BREAST COMPLETE LEFT HM [facility] Left real-time whole breast sonography included all four quadrants and the retroareolar region under close supervision by the radiologist. Computer aided detection with tomosynthesis was utilized for the interpretation. HISTORY:72-year-old female recalled from screening for an abnormal left mammogram. COMPARISON: Screening mammogram of 05/19/2018. DENSITY: The breast are heterogenously dense, which may obscure small masses. MAMMOGRAM: Benign calcifications are noted in the left breast. Additional evaluation was performed for the questionable distortion in the left upper-outer quadrant. On the CC and lateral views there is a vague distortion with central fat noted in the left upper-outer quadrant at 3 o'clock 6 cm from the nipple. According to the patient she had a surgical biopsy over 40 years ago. A biopsy clip is visualized in the left lateral breast at 3 o'clock 6.5 cm from the nipple. An oval circumscribed 1.3 cm mass is identified in the left upper-outer quadrant at 12 o'clock 3 cm from the nipple. ULTRASOUND: There is a vague linear scar extending from the skin towards the left upper-outer quadrant which likely represent a distortion seen on mammography. In the left breast at 12 o'clock periareolar region, there is a 1.0 x 0.8 x 0.6 cm oval mass with angular margins which represents the mass seen on mammography. Incidentally noted are adjacent subcentimeter masses measuring 0.5 x 0.4 x 0.4 cm and 0.4 x 0.3 x 0.3 cm. A benign cyst is visualized in the left breast at 5 o'clock 4 cm from the nipple. An oval benign-appearing 0.8 x 0.3 x 0.6 cm mass is identified in the left breast at 4 o'clock 2 cm from the nipple. IMPRESSION: 1. Indeterminate masses in the left superior breast. Ultrasound-guided biopsy of the dominant mass at the 12 o'clock periareolar region and theadjacent 0.5 cm mass is recommended. 2. Vague architectural distortion in the left upper-outer quadrant likely represent postsurgical changes. There is no suspicious sonographic correlate. If the pathology result of the above biopsy is benign, short interval follow-up with a diagnostic mammogram in 6 months is recommended to ensure stability. Findings and recommendations were discussed with the patient. If prior mammograms are made available and this finding has been stable, an addendum will be generated. BI-RADS 4: SUSPICIOUS DWS01 Performing Organization Address City/State/Zipcode Phone Number [facility] [address] [place] [address] * Mammo Breast Diagnostic Tomosynthesis Left (05/30/2018 2:22 PM CDT) Addenda Addendum by Katie Tamayo MD on 05/31/2018 4:11 PM ADDENDUM #1 Prior outside comparison mammograms dated 05/27/2017 and was provided The vague architectural distortion in the left upper-outer quadrant is likely related to postoperative changes as it was visualized on previous examinations. The dominant mass in the left superior breast was partially visualized on the 2014 examination but definitely on the 2016 examination. Given the more than two-year stability, this mass is probably benign. However, given that the other masses were only visualized on ultrasound, short interval follow-up with a left diagnostic mammogram and ultrasound in 6 months is recommended to ensure stability. BI-RADS 3: Probably benign. Narrative Performed At PROCEDURE: MAMMO BREAST DIAGNOSTIC TOMOSYNTHESIS LEFT, US BREAST COMPLETE LEFT [facility] Left real-time whole breast sonography included all four quadrants and the retroareolar region under close supervision by the radiologist. Computer aided detection with tomosynthesis was utilized for the interpretation. HISTORY:72-year-old female recalled from screening for an abnormal left mammogram. COMPARISON: Screening mammogram of 05/19/2018. DENSITY: The breast are heterogenously dense, which may obscure small masses. MAMMOGRAM: Benign calcifications are noted in the left breast. Additional evaluation was performed for the questionable distortion in the left upper-outer quadrant. On the CC and lateral views there is a vague distortion with central fat noted in the left upper-outer quadrant at 3 o'clock 6 cm from the nipple. According to the patient she had a surgical biopsy over 40 years ago. A biopsy clip is visualized in the left lateral breast at 3 o'clock 6.5 cm from the nipple. An oval circumscribed 1.3 cm mass is identified in the left upper-outer quadrant at 12 o'clock 3 cm from the nipple. ULTRASOUND: There is a vague linear scar extending from the skin towards the left upper-outer quadrant which likely represent a distortion seen on mammography. In the left breast at 12 o'clock periareolar region, there is a 1.0 x 0.8 x 0.6 cm oval mass with angular margins which represents the mass seen on mammography. Incidentally noted are adjacent subcentimeter masses measuring 0.5 x 0.4 x 0.4 cm and 0.4 x 0.3 x 0.3 cm. A benign cyst is visualized in the left breast at 5 o'clock 4 cm from the nipple. An oval benign-appearing 0.8 x 0.3 x 0.6 cm mass is identified in the left breast at 4 o'clock 2 cm from the nipple. IMPRESSION: 1. Indeterminate masses in the left superior breast. Ultrasound-guided biopsy of the dominant mass at the 12 o'clock periareolar region and theadjacent 0.5 cm mass is recommended. 2. Vague architectural distortion in the left upper-outer quadrant likely represent postsurgical changes. There is no suspicious sonographic correlate. If the pathology result of the above biopsy is benign, short interval follow-up with a diagnostic mammogram in 6 months is recommended to ensure stability. Findings and recommendations were discussed with the patient. If prior mammograms are made available and this finding has been stable, an addendum will be generated. BI-RADS 4: SUSPICIOUS DWS01 Performing Organization Address City/State/Zipcode Phone Number [facility] [address] [place] [address] * Mammo Breast Screen Tomosynthesis Bilateral (05/19/2018 11:32 AM CDT) Narrative Performed At PROCEDURE:MAMMO BREAST SCREEN TOMOSYNTHESIS [id number]/12/2018 11:18 AM [facility] This patient's mammogram was interpreted with the assistance of computer-aided detection (CAD). Digital breast tomosynthesis (3D) imaging was performed. CLINICAL HISTORY:72-year-old female referred for screening mammogram.She reports no new or current breast complaints. FAMILY HISTORY:No reported family history of breast carcinoma. COMPARISON:None available. BREAST DENSITY:There are scattered areas of fibroglandular density. DIGITAL SCREENING MAMMOGRAPHY FINDINGS: Right breast: There are no dominant masses, suspicious microcalcifications or unexplained architectural distortion to suggest malignancy. A biopsy clip is located within the right breast, upper inner quadrant, at anterior depth. Left breast: There is architectural distortion located within the upper outer left breast at middle depth. There is a possible oval mass located within the upper outer left breast at anterior depth. IMPRESSION: BI-RADS Category 0-Incomplete: Need Prior Mammograms for Comparison. RECOMMENDATION: Obtain priors for comparison and if available, an addendum will be generated. In the absence of prior mammographic examinations, recommend further evaluation of left breast architectural distortion, which may relate to surgical excisional biopsy scar, in addition to left breast mass with left diagnostic mammogram, ultrasound if indicated. This facility is accredited by [employer] [employer] for Mammography. A negative x-ray report should not delay biopsy if a dominant or clinically suspicious mass is present. Not all cancers are identified by x-ray. DWS01 The results of this exam have been sent to the patient. Performing Organization Address City/State/Zipcode Phone Number [facility] [address] [place] [address] * Estimated GFR (04/13/2018 4:15 AM CDT) Only the most recent of 4 results within the time period is included. GFR Non Af Amer 62 mL/min/1.73 m2 [facility] DEPARTMENT OF PATHOLOGY AND GENOMIC MEDICINE GFR Af Amer 75 mL/min/1.73 m2 [facility] DEPARTMENT OF Comment: PATHOLOGY AND Chronic kidney disease: <60 GENOMIC MEDICINE mL/min/1.73m2 Kidney failure: <15 mL/min/1.73m2 The estimated GFR is calculated from the IDMS-traceable Modification of Diet in Renal Disease Equation. The accuracy of the calculation is poor when the creatinine is normal. Calculated values >90 mL/min/1.73m2 are not reported. This equation has not been validated in children (<18 years), women, the elderly (>70 years), or ethnic groups other than Caucasians and Americans. Specimen Plasma specimen Performing Organization Address City/State/Zipcode Phone Number [address] [place] [address] PATHOLOGY AND GENOMIC MEDICINE * Basic metabolic panel (04/13/2018 4:15 AM CDT) Only the most recent of 2 results within the time period is included. Sodium 140 135 - 148 mEq/L [facility] DEPARTMENT OF PATHOLOGY AND GENOMIC MEDICINE Potassium 3.9 3.5 - 5.0 mEq/L [facility] DEPARTMENT OF PATHOLOGY AND GENOMIC MEDICINE Chloride 101 98 - 112 mEq/L [facility] DEPARTMENT OF PATHOLOGY AND GENOMIC MEDICINE CO2 30 24 - 31 mEq/L [facility] DEPARTMENT OF PATHOLOGY AND GENOMIC MEDICINE Anion gap 9@ANIO 7 - 15 mEq/L [facility] DEPARTMENT OF PATHOLOGY AND GENOMIC MEDICINE BUN 20 8 - 23 mg/dL [facility] DEPARTMENT OF PATHOLOGY AND GENOMIC MEDICINE Creatinine 0.9 0.5 - 0.9 mg/dL [facility] DEPARTMENT OF PATHOLOGY AND GENOMIC MEDICINE Glucose 117 (H) 65 - 99 mg/dL [facility] DEPARTMENT OF PATHOLOGY AND GENOMIC MEDICINE Calcium 9.5 8.8 - 10.2 mg/dL [facility] DEPARTMENT OF PATHOLOGY AND GENOMIC MEDICINE Specimen Plasma specimen Performing Organization Address [facility] Phone Number [address] [place] [address] PATHOLOGY AND GENOMIC MEDICINE * Surgical pathology request (04/11/2018 1:19 PM CDT) [facility] DEPARTMENT OF PATHOLOGY AND GENOMIC MEDICINE Surgical pathology report See link below for PDF Lab [facility] DEPARTMENT OF Report PATHOLOGY AND GENOMIC MEDICINE Result status This is Final Report for [facility] [id number] PATHOLOGY AND GENOMIC MEDICINE Performing Organization Address [facility] Phone Number [address] [place] [address] PATHOLOGY AND GENOMIC MEDICINE * Urinalysis screen and microscopy, with reflex to culture (04/11/2018 10:22 AM CDT) Only the most recent of 3 results within the time period is included. Specimen site Clean catch [facility] DEPARTMENT OF PATHOLOGY AND GENOMIC MEDICINE Color, UA Yellow [facility] DEPARTMENT OF PATHOLOGY AND GENOMIC MEDICINE Appearance, UA Slightly-Cloudy [facility] DEPARTMENT OF PATHOLOGY AND GENOMIC MEDICINE Specific gravity, UA 1.019 1.001 - 1.035 [facility] DEPARTMENT OF PATHOLOGY AND GENOMIC MEDICINE pH, UA 5.0 5.0 - 8.5 [facility] DEPARTMENT OF PATHOLOGY AND GENOMIC MEDICINE Protein, UA Negative Negative [facility] DEPARTMENT OF PATHOLOGY AND GENOMIC MEDICINE Glucose, UA Negative Negative [facility] DEPARTMENT OF PATHOLOGY AND GENOMIC MEDICINE Ketones, UA Trace (A) Negative [facility] DEPARTMENT OF PATHOLOGY AND GENOMIC MEDICINE Bilirubin, UA Negative Negative [facility] DEPARTMENT OF PATHOLOGY AND GENOMIC MEDICINE Blood, UA Negative Negative [facility] DEPARTMENT OF PATHOLOGY AND GENOMIC MEDICINE Nitrite, UA Negative Negative [facility] DEPARTMENT OF PATHOLOGY AND GENOMIC MEDICINE Urobilinogen, UA Negative <2.0 [facility] DEPARTMENT OF PATHOLOGY AND GENOMIC MEDICINE Leukocyte esterase, UA Negative Negative [facility] DEPARTMENT OF PATHOLOGY AND GENOMIC MEDICINE Epithelial cells, UA Few /HPF [facility] DEPARTMENT OF PATHOLOGY AND GENOMIC MEDICINE Round epithelial cells, Few 0 - 1 /HPF [facility] DEPARTMENT [facility] PATHOLOGY AND GENOMIC MEDICINE WBC, UA 0-5 0 - 4 /HPF [facility] DEPARTMENT OF PATHOLOGY AND GENOMIC MEDICINE RBC, UA 0-5 0 - 5 /HPF [facility] DEPARTMENT OF PATHOLOGY AND GENOMIC MEDICINE Bacteria, UA None seen None seen [facility] DEPARTMENT OF PATHOLOGY AND GENOMIC MEDICINE Yeast, UA None seen [facility] DEPARTMENT OF PATHOLOGY AND GENOMIC MEDICINE Yeast with pseudohyphae, None seen [facility] UA PATHOLOGY AND GENOMIC MEDICINE Calcium oxalate crystals, Many [facility] DEPARTMENT [facility] PATHOLOGY AND GENOMIC MEDICINE Specimen Urine Performing Organization Address City[facility] Phone Number [facility] [id number] [place] [address] [place] [address] PATHOLOGY AND [facility] MEDICINE * Urine culture (04/11/2018 10:22 AM CDT) Only the most recent of 4 results within the time period is included. Urine culture SEE COMMENTComment: [facility] DEPARTMENT OF Bacteriuria screen negative. PATHOLOGY AND [facility] Specimen Urine Performing Organization Address [facility] Phone Number [address] [place] [address] PATHOLOGY AND GENOMIC MEDICINE * ECG 12 lead (04/07/2018 3:20 PM CDT) Only the most recent of 4 results within the time period is included. Ventricular rate 65 [facility] Atrial rate 68 [facility] WY interval 172 [facility] QRSD interval 90 [facility] QT interval 396 [facility] QTC interval 411 [facility] P axis 1 79 [facility] QRS axis 1 66 [facility] T wave axis 77 [facility] EKG impression Normal sinus rhythm with sinus [facility]USE arrhythmia-Normal ECG-In automated comparison with ECG of 06-MAR-2018 13:09,-No significant change was found- Performing Organization Address City/[facility]/Zipcode Phone Number [facility] [address] [place] [phone] * Partial thromboplastin time, activated (04/07/2018 3:15 PM CDT) Only the most recent of 3 results within the time period is included. PTT 28.1 23.0 - 36.0 sec [facility] DEPARTMENT OF Comment: PATHOLOGY AND PTT therapeutic range for GENOMIC MEDICINE unfractionated heparin is 61.0-112.0 seconds which corresponds to Anti-Xa 0.3-0.7 U/ml. Specimen Blood Performing Organization Address [facility] Phone Number [address] [place] [phone] PATHOLOGY AND GENOMIC MEDICINE * Prothrombin time with INR (04/07/2018 3:15 PM CDT) Only the most recent of 3 results within the time period is included. Prothrombin time 12.8 12.0 - 15.0 sec [facility] DEPARTMENT OF PATHOLOGY AND GENOMIC MEDICINE INR 1.0 [facility] DEPARTMENT OF Comment: PATHOLOGY AND The International Normalized GENOMIC MEDICINE Ratio (INR) is a therapeutic monitoring tool for patients who are stable on oral anticoagulant therapy. An INR of 2.0-3.0 is suggested for deep vein thrombosis/pulmonary embolism. Specimen Blood Performing Organization Address [facility] Phone Number [address] [place] [phone] PATHOLOGY AND GENOMIC MEDICINE * Gram stain (04/07/2018 3:15 PM CDT) Only the most recent of 2 results within the time period is included. Gram stain result No WBC's or organisms seen. [facility] DEPARTMENT OF Comment: PATHOLOGY AND Specimen Information GENOMIC MEDICINE Specimen Source: Urine Specimen Site: Clean catch Specimen Urine Performing Organization Address [facility]/Zipcode Phone Number [facility] DEPARTMENT OF [address] [place] [phone] PATHOLOGY AND GENOMIC MEDICINE * Type and screen (04/07/2018 3:15 PM CDT) Only the most recent of 3 results within the time period is included. ABO grouping A [facility] DEPARTMENT OF PATHOLOGY AND GENOMIC MEDICINE Rh type NEG [facility] DEPARTMENT OF PATHOLOGY AND GENOMIC MEDICINE Antibody screen NEG [facility] DEPARTMENT OF PATHOLOGY AND GENOMIC MEDICINE Specimen Blood Performing Organization Address City/State/Zipcode Phone Number [facility] [place] [address] [place] [address] PATHOLOGY AND GENOMIC MEDICINE * MRSA screen culture (04/07/2018 3:15 PM CDT) Only the most recent of 2 results within the time period is included. MRSA screen culture No Methicillin Resistant [facility] DEPARTMENT OF isolate Staphylococcus aureus PATHOLOGY AND isolated. GENOMIC MEDICINE Comment: Specimen Information Specimen Source: Nares Specimen Site: Not specified Specimen Nares - Not specified Performing Organization Address City/State/Zipcode Phone Number [facility] DEPARTMENT OF [address] [place] [address] PATHOLOGY AND GENOMIC MEDICINE * XR Foot 3+ Vw Left (04/03/2018 12:40 PM CDT) Narrative Performed At EXAMINATION:XR FOOT 3VW LEFT [facility] CLINICAL HISTORY:M79.672 Pain in left foot, left foot pain and bruising x 2 weeks s p fall - please eval COMPARISON:None. IMPRESSION: 1.There is no evidence of acute left foot fracture or dislocation. There are no radiopaque foreign bodies. 2.There are no focal bony erosions or periostitis. 3. Changes from previous medial osteotomy distal first metatarsal. Considerable degenerative subchondral cystic changes at the distal head of the first metatarsal. 4. Mild degenerative changes at the talonavicular, navicular- cuneiform, and cuneiform-metatarsal articulations 5. Small plantar aspect calcaneal spur [id number] Procedure Note Hm Interface, Radiology Results Incoming - 04/03/2018 1:27 PM CDT EXAMINATION: XR FOOT 3 VW LEFT CLINICAL HISTORY: M79.672 Pain in left foot, left foot pain and bruising x 2 weeks s p fall - please eval COMPARISON: None. IMPRESSION: 1. There is no evidence of acute left foot fracture or dislocation. There are no radiopaque foreign bodies. 2. There are no focal bony erosions or periostitis. 3. Changes from previous medial osteotomy distal first metatarsal. Considerable degenerative subchondral cystic changes at the distal head of the first metatarsal. 4. Mild degenerative changes at the talonavicular, navicular- cuneiform, and cuneiform- metatarsal articulations 5. Small plantar aspect calcaneal spur [id number] Performing Organization Address [facility] Phone Number [facility] [address] [place] [address] * XR Chest 2 Vw (03/06/2018 2:05 PM CDT) Only the most recent of 2 results within the time period is included. Narrative Performed At EXAMINATION:XR CHEST 2 VW [facility] CLINICAL HISTORY:Z01.818 Encounter for other preprocedural examination, PREOP COMPARISON:January 18, 2018 FINDINGS: The heart size appears normal. The mediastinum is unremarkable. The lungs are clear. IMPRESSION: No acute finding is visualized [id number] Procedure Note Hm Interface, Radiology Results Incoming - 03/06/2018 2:23 PM CDT EXAMINATION: XR CHEST 2 VW CLINICAL HISTORY: Z01.818 Encounter for other preprocedural examination, PREOP COMPARISON: January 18, 2018 FINDINGS: The heart size appears normal. The mediastinum is unremarkable. The lungs are clear. IMPRESSION: No acute finding is visualized [id number] Performing Organization Address [facility] Phone Number [facility] [address] [place] [address] * Us carotid duplex (01/18/2018 1:30 PM CDT) L CCA Prox 14.1 cm/s cm/s [facility] L CCA Prox 80.1 cm/s cm/s [facility] L ECA Prox 7.40 cm/s cm/s [facility] L ECA Prox 107.5 cm/s cm/s [facility] R ECA Prox 8.20 cm/s cm/s [facility] L ICA Prox 20.4 cm/s cm/s [facility] L ICA Prox 80.9 cm/s cm/s [facility] R ICA Prox 15.4 cm/s cm/s [facility] R ICA Prox 68.6 cm/s cm/s [facility] L ICA/CCA Ratio 2.3 cm/s [facility] R ICA/CCA Ratio 0.9 cm/s [facility] L CCA Max 91.40 cm/s cm/s [facility] R CCA Max 93.40 cm/s cm/s [facility] L ICA Max 88.60 cm/s cm/s [facility] R ICA Max 80.80 cm/s cm/s [facility] R CCA Prox 13.8 cm/s cm/s [facility] R CCA Prox 93.4 cm/s cm/s [facility] R ICA Dist 25 cm/s cm/s [facility] L ICA Dist 25.8 cm/s cm/s [facility] L ICA DIST 88.6 cm/s cm/s [facility] R CCA Dist 12.5 cm/s cm/s [facility] R CCA Dist 77.7 cm/s cm/s [facility] R Vert Art 13.70 cm/s cm/s [facility] L Car Bulb 8.50 cm/s cm/s [facility] L Car Bulb 205.60 cm/s cm/s [facility] L CCA Dist 16.3 cm/s cm/s [facility] L CCA Dist 91.4 cm/s cm/s [facility] R ECA Prox 120.70 cm/s cm/s [facility] R ICA Dist 80.8 cm/s cm/s [facility] L Vert Art 15.00 cm/s cm/s [facility] L Vert Art 62.3 cm/s cm/s [facility] R Vert Art 64.20 cm/s cm/s [facility] Narrative Performed At [facility] There is less than 50% stenosis of the right internal carotid artery. There is 50-69% stenosis of the left internal carotid artery. Performing Organization Address City/State/Zipcode Phone Number [facility] [address] [place] [address] * Echocardiogram complete w contrast and 3D if needed (01/18/2018 1:14 PM CDT) AoV Area, Vmax 2.11 cm2 [facility] AoV Area, VTI 2.04 cm2 [facility] AoV Mean PG 8.53 mmHg [facility] AoV Peak PG 15.02 mmHg [facility] AoV Vmax 1.94 m/s [facility] AoV VTI 0.43 m [facility] BSA Roque 1.91 m2 [facility] BSA 1.88 m2 [facility] IVS,d 1.01 0.6 - 1.2 cm [facility] IVS/LVPW,2D 0.84 [facility] LV,d 4.40 cm [facility] LV EF,2D 74.88 % [facility] LV EF,A2C 58.36 % [facility] LV EF,A4C 77.53 % [facility] LV EF,BP 67.43 % [facility] Shahbaz Hestand,d A2C 7.04 cm [facility] Shahbaz Hestand,d A4C 7.11 cm [facility] Shahbaz Hestand,s A2C 5.88 cm [facility] Shahbaz Hestand,s A4C 5.12 cm [facility] LV,s 2.78 cm [facility] LV SV,A2C 35.86 % [facility] LV SV,A4C 53.35 % [facility] LV SV,BP 43.84 % [facility] LV Vol,d A2C 61.45 mL [facility] LV Vol,d A4C 68.81 ml [facility] LV Vol,d BP 65.01 ml [facility] LV Vol,s A2C 25.59 mL [facility] LV Vol,s A4C 15.46 ml [facility] LV Vol,s BP 21.17 nl [facility] LVOT area 3.70 cm2 [facility] LVOT Diam,S 2.17 cm [facility] LVOT Vmax 1.11 m/s [facility] LVOT VTI 0.24 m [facility] LVPWD,d 1.20 cm [facility] TR Vpeak 2.25 mm/s [facility] AR Press Half Time 534.36 ms [facility] MV E A ratio 1.31 mmHg [facility] RA pressure 5.00 mmHg [facility] TR pk grad 18.29 mmHg [facility] AoV area i VTI BSA [place] 1.08 cm2/m2 [facility] LV SI MOD BP BSA [place] 23.28 ml/m2 [facility] LV Vol Index s bpmod BSA 34.52 ml/m2 [facility] Haresh PV Vmn 11.24 m/s [facility] MR Vmax 4.24 m/s [facility] MR peak grad 71.99 mmHg [facility] BMI 25.09 kg/m2 [facility] E wave decelartion time 207.04 msec [facility] MV Peak A Jm 0.66 m/s [facility] MV valve area p 1/2 3.66 cm2 [facility] method MV Peak E Jm 0.86 m/s [facility] MV stenosis pressure 1/2 60.04 ms [facility] time AV LVOT peak gradient 4.90 mmHg [facility] RVSP 25.24 mmHg [facility] LV SYS VOL 28.96 ml [facility] LV ALAN VOL 87.75 ml [facility] LV SI Teich 2D 31.21 ml/m2 [facility] LV SV Teich 2D 58.79 ml [facility] LV Vol s Teich PSAX 28.96 ml [facility] LVOT SI 46.27 ml/m2 [facility] BSA Haycock 1.90 m2 [facility] AoV Cusp sep 1.70 [facility] AoV Vmn 1.39 [facility] IVS s 2D 1.47 [facility] LV FS Teich 2D 36.90 [facility] MV AE ratio 0.76 [facility] AR slope 2.45 [facility] Ar Vmax 4.78 [facility] LA Ao Ratio Mmode 1.13 [facility] LV FS Cube 2D 36.90 [facility] LVOT Vmn 0.82 [facility] Pt Size 172.72 [facility] Pt Wt 74.84 [facility] PV AT 110.73 msec [facility] Aov area Vmn 2.18 cm2 [facility] LVOT mean grad 2.92 mmHg [facility] AoV area I VMN bsa 1.16 cm2/m2 [facility] AR DT 1,953.61 msec [facility] AR pk grad 89.92 mmHg [facility] IVS pct thck PLAX 45.05 % [facility] LV SI Cube 2D 33.89 ml/m2 [facility] LV SV Cube 2D 63.84 ml [facility] LV vol d cube 2D 85.25 ml [facility] LV vol s cube 2D 21.42 ml [facility] LVPW pct thck PLAX 20.53 % [facility] LVPW s PLAX 1.45 cm [facility] MV Decel slope 4.16 m/s2 [facility] Velocity Ratio (V1/V2) 0.57 m/s [facility] EF 67.00 % [facility] E/A ratio 1.30 [facility] LV Systolic Volume Index 13.61 mL/m2 [facility] LV Diastolic Volume Index 32.69 mL/m2 [facility] LA volume 88.0 cm3 [facility] LA Volume Index 46.81 mL/m2 [facility] LA Area d A4C 52 cm2 [facility] LA diam s 3.20 cm [facility] Aortic Root 2.85 cm [facility] AR maxPG 91.36 [facility] D E excurs 1.50 [facility] E f slope 0.09 [facility] E prime lat 0.11 [facility] E mattie sept 0.08 [facility] PV acc T slope 5.60 [facility] IVC diam 11.46 cm [facility] Narrative Performed At [facility] The left ventricle chamber size is normal. Left Ventricular ejection fraction is 55 - 60%. No pericardial effusion Performing Organization Address City/State/Zipcode Phone Number [facility] [address] [place] [address] * Cardio IQ(R) advanced lipid panel and inflammation panel (01/12/2018 8:16 AM CDT) Cholesterol, total 237 (H) <200 mg/dL [facility] HDL cholesterol 83 >50 mg/dL [facility] Triglycerides 182 (H) <150 mg/dL [facility] LDL cholesterol 124 (H) <100 mg/dL [facility] calculated Comment: DI[facility]ST[facility] Desirable range <100 mg/dL for SJC primary prevention; <70 mg/dL for patients with CHD or diabetic patients with > or=2 CHD risk factors. LDL-C is now calculated using the Alden-Madhavi calculation, which is a validated novel method providing better accuracy than the Friedewald equation in the estimation of LDL-C. Alden SS et al. LILY. 2013;310(19): 7985-3955 For additional information, please refer to http://education.TradeCard.com/faq/SJS048 (This link is being provided for informational/educational purposes only.) Cholesterol/HDL ratio 2.9 <5.0 calc [facility] Non-HDL cholesterol 154 (H) <130 mg/dL (calc) [facility] Comment: [facility] For patients with diabetes SJC plus 1 major ASCVD risk factor, treating to a non-HDL-C goal of <100 mg/dL (LDL-C of <70 mg/dL) is considered a therapeutic option. LDL particle number 1,293 732 - 2,035 nmol/L [facility] Comment: [facility]NOSTICS/[facility] Risk: Optimal <1138; Moderate SJC 0181-2353; High >1409 LDL small 247 75 - 452 nmol/L [facility] Comment: [facility] Risk: Optimal <142; Moderate SJC 142-219; High >219 LDL medium 288 122 - 498 nmol/L [facility] Comment: [facility] Risk: Optimal <215; Moderate SJC 215-301; High >301 HDL large 7,104 3,966 - 11,938 nmol/L [facility] Comment: [facility] Risk: Optimal >6729; Moderate SJC 4176-3504; High <5353 LDL density pattern B (A) A Pattern [facility] Comment: [facility] Risk: Optimal Pattern A; High SJC Pattern B LDL peak size 215.0 (L) > XF=139.4 Angstrom [facility] Comment: [facility] Risk: Optimal >222.9; Moderate SJC 222.9-217.4; High <217.4 Adult cardiovascular event risk category cut points (optimal, moderate, high) are based on adult [place] reference population. Association between lipoprotein subfractions and cardiovascular events is based on Miguel et al. ATVB. 2009;29:1975. This test was developed and its analytical performance characteristics have been determined by [facility]. It has not been cleared or approved by FDA. This assay has been validated pursuant to the CLIA regulations and is used for clinical purposes. Apolipoprotein B 105 (H) 49 - 103 mg/dL [facility] Comment: DI[facility]NOSTICS/[facility] Risk: Optimal < 80 mg/dL; SJC Moderate 80-119 mg/dL; High > or= 120 mg/dL Cardiovascular event risk category cut points (optimal, moderate, high) are based on National Lipid Association recommendations - Diaz et al. J Clin Lipidol. 2011;5:338 Lipoprotein (a) 164 (H) <75 nmol/L [facility] Comment: [facility] Risk: Optimal < 75 nmol/L; SJC Moderate 75-125 nmol/L; High > 125 nmol/L Cardiovascular event risk category cut points (optimal, moderate, high) are based on Marcovina et al. Clin Chem. 2003;49:1785 and Nordmilygaard et al. Heart J. 2010;31:2844 (results of meta-analysis and expert panel recommendations). CRP, high sensitivity 7.2 (H) mg/L [facility] Comment: [facility]NOSTICS/[facility] For Ages > 17 Years: [facility] hs-CRP mg/L Risk According to AHA/CDC Guidelines ------ <1.0Lower Relative Cardiovascular Risk. 1.0-3.0Average Relative Cardiovascular Risk 3.1-10.0 Higher Relative Cardiovascular Risk. Consid er retesting in 1 to 2 weeks to exclud e a benign transient elevation in the baseline CRP value secondary to infect ion or inflammation. >10.0 Persistent elevations upon retesting, may be associated with infection and inflam mation. Lp-PLA2 162 (H) 50 - 133 nmol/min/mL [facility] Comment: [facility]NOSTICS/[facility] Risk: Optimal <=123 SJC nmol/min/mL; High >123 nmol/min/mL. The Lp-PLA2 Activity test measures the function of the Lp-PLA2 enzyme versus the concentration (mass) of the enzyme. As a result of the differences in reporting ranges, patient test results from the Lp-PLA2 (PLAC(R)) mass assay cannot be used for direct comparison to the results of the Cardio IQ Lp-PLA2 Activity assay, but for your reference the risk cut points for the discontinued Lp-PLA2 Mass test were Optimal <200 ng/mL; Moderate 200-235 ng/mL; High >235 ng/mL. This test was developed and its analytical performance characteristics have been determined by [facility]. It has not been cleared or approved by FDA. This assay has been validated pursuant to the CLIA regulations and is used for clinical purposes. Narrative Performed At FASTING:YES [facility] FASTING: YES Resulting Agency Comment Performing Organization Information: Site ID: [id number] Name: [facility], Address: [address] [place] [id number] Director: Liz Bueno MD,PhD,BRENNAN Performing Organization Address City/State/Zipcode Phone Number [facility] [address] [place] [address] [facility] [address] * Homocystine, plasma (01/12/2018 8:16 AM CDT) Homocysteine 12.1 (H) <10.4 umol/L [facility] Comment[facility] Homocysteine is increased by II functional deficiency of folate or vitamin B12.Testing for methylmalonic acid differentiates between these deficiencies.Other causes of increased homocysteine include renal failure, folate antagonists such as methotrexate and phenytoin, and exposure to nitrous oxide. Specimen Blood Narrative Performed At FASTING:YES [facility] FASTING: YES Resulting Agency Comment Performing Organization Information: Site ID: [id number] Name: [facility] Address: [address] [place] [id number] Director: Dr. Alphonse Bain Performing Organization Address [facility] Phone Number [address] [address] II * Vitamin B12 level (01/12/2018 8:16 AM CDT) Only the most recent of 2 results within the time period is included. Vitamin B12 1,460 (H) 200 - 1,100 pg/mL RV ID [id number] Specimen Blood Narrative Performed At FASTING:YES [facility] FASTING: YES Resulting Agency Comment Performing Organization Information: Site ID: [id number] Name: [facility] Address: [address] [place] [id number] Director: Janiya Dias Performing Organization Address [facility] Phone Number [facility] [address] [address] * XR Knee 4+ Vw Left (12/30/2017 2:15 PM CDT) Narrative Performed At [facility] findings:Severe medial oa. Impression:Severe medial OA. Performing Organization Address [facility] Phone Number [facility] [address] [place] [address] * Large Joint Arthrocentesis (12/06/2017 1:15 PM CDT) Narrative Performed At Teodoro Dillard MD 12/06/20171:25 PM Large Joint Arthrocentesis Consent given by: patient Site marked: site marked Timeout: Immediately prior to procedure a time out was called to verify the correct patient, procedure, equipment, support teacher and site/side marked as required Supporting Documentation Indications: pain Procedure Details Preparation: Patient was prepped and draped in the usual sterile fashion Location: knee - L knee Left side: Needle size: 20 G Approach: lateral Left knee medications administered: 20 mg sodium hyaluronate (viscosup) 10 mg/mL Patient tolerance: patient tolerated the procedure well with no immediate complications * Large Joint Arthrocentesis (11/29/2017 1:15 PM CDT) Narrative Performed At Teodoro Dillard MD 11/29/20171:37 PM Large Joint Arthrocentesis Consent given by: patient Site marked: site marked Timeout: Immediately prior to procedure a time out was called to verify the correct patient, procedure, equipment, support teacher and site/side marked as required Supporting Documentation Indications: pain Procedure Details Preparation: Patient was prepped and draped in the usual sterile fashion Location: knee - L knee Left side: Needle size: 20 G Approach: lateral Left knee medications administered: 20 mg sodium hyaluronate (viscosup) 10 mg/mL Patient tolerance: patient tolerated the procedure well with no immediate complications * Large Joint Arthrocentesis (11/22/2017 1:15 PM CDT) Narrative Performed At Teodoro Dillard MD 11/22/20172:08 PM Large Joint Arthrocentesis Consent given by: patient Site marked: site marked Timeout: Immediately prior to procedure a time out was called to verify the correct patient, procedure, equipment, support teacher and site/side marked as required Supporting Documentation Indications: pain Procedure Details Preparation: Patient was prepped and draped in the usual sterile fashion Location: knee - L knee Left side: Needle size: 20 G Approach: lateral Left knee medications administered: 20 mg sodium hyaluronate (viscosup) 10 mg/mL Patient tolerance: patient tolerated the procedure well with no immediate complications * XR Lumbar Spine Complete 4+ Vw (10/31/2017 12:37 PM CDT) Only the most recent of 2 results within the time period is included. Narrative Performed At EXAMINATION: XR LUMBAR SPINE COMPLETE 4VW [facility] CLINICAL HISTORY: M54.16 Radiculopathylumbar region, lumbar radiculopathy s p 2 falls in the past month COMPARISON:None IMPRESSION: 5 radiographs of the lumbar spine are submitted. 5 nonrib-bearing lumbar-type vertebral bodies are identified. The L5 vertebral body has transitional anatomy. On the frontal projection, there is right convex curvature of the lumbar spine. Lumbar lordosis is preserved. Retrolisthesis at L2-3 and L3-4 of approximately 3-4 mm. Anterior spondylolisthesis at L4-5 of approximately 10 mm. Severe disc space narrowing with vacuum disc phenomenon, endplate sclerosis and marginal osteophytes at L2-3. Moderate disc space narrowing at L5-S1. Prominent degenerative changes of the facet joints at L4-5 and L5-S1. There are mild spondylotic changes of the rest of the lumbar spine. Vertebral body heights are preserved. No displaced fracture identified. Vascular calcifications along the abdominal aorta and common iliac arteries. Surgical clara in the right upper quadrant. [id number] Procedure Note Hm Interface, Radiology Results Incoming - 10/31/2017 1:17 PM CDT EXAMINATION: XR LUMBAR SPINE COMPLETE 4 VW CLINICAL HISTORY: M54.16 Radiculopathy lumbar region, lumbar radiculopathy s p 2 falls in the past month COMPARISON: None IMPRESSION: 5 radiographs of the lumbar spine are submitted. 5 nonrib-bearing lumbar-type vertebral bodies are identified. The L5 vertebral body has transitional anatomy. On the frontal projection, there is right convex curvature of the lumbar spine. Lumbar lordosis is preserved. Retrolisthesis at L2-3 and L3-4 of approximately 3-4 mm. Anterior spondylolisthesis at L4-5 of approximately 10 mm. Severe disc space narrowing with vacuum disc phenomenon, endplate sclerosis and marginal osteophytes at L2-3. Moderate disc space narrowing at L5-S1. Prominent degenerative changes of the facet joints at L4-5 and L5-S1. There are mild spondylotic changes of the rest of the lumbar spine. Vertebral body heights are preserved. No displaced fracture identified. Vascular calcifications along the abdominal aorta and common iliac arteries. Surgical clara in the right upper quadrant. [id number] Performing Organization Address City/State/Zipcode Phone Number [facility] [address] [place] [address] * URINALYSIS, COMPLETE, WITH REFLEX TO CULTURE (10/26/2017 3:09 PM CDT) Only the most recent of 2 results within the time period is included. Color, UA YELLOW YELLOW [facility] [place] Appearance CLEAR CLEAR [facility] [place] Specific gravity, urine 1.015 1.001 - 1.035 [facility] [place] pH, urine < OR=5.0 5.0 - 8.0 [facility] [place] Glucose, urine NEGATIVE NEGATIVE [facility] [place] Bilirubin, UA NEGATIVE NEGATIVE [facility] [place] Ketones, UA NEGATIVE NEGATIVE [facility] [place] Occult blood, urine NEGATIVE NEGATIVE [facility] [place] Protein, UA NEGATIVE NEGATIVE [facility] [place] Nitrite, UA NEGATIVE NEGATIVE [facility] [place] Leukocyte esterase, UA TRACE (A) NEGATIVE [facility] [place] WBC, UA 0-5 < OR=5 /HPF [facility] [place] RBC, UA 0-2 < OR=2 /HPF [facility] [place] Squamous epithelial 0-5 < OR=5 /HPF [facility] cells, UA [place] Bacteria, UA FEW (A) NONE SEEN /HPF [facility] [place] Calcium oxalate crystals, FEW NONE OR FEW /HPF [facility] UA [place] Hyaline casts, UA NONE SEEN NONE SEEN /LPF [facility] [place] Reflex CULTURE INDICATED - RESULTS TO [facility] Resulting Agency Comment Performing Organization Information: Site ID: [id number] Name: [facility] Address: [address] [place] [id number] Director: Janiya Dias MD Performing Organization Address [facility] [place] [place] [address] * Measure blood pressure (10/26/2017) Narrative Performed At * Thyroid stimulating hormone (08/17/2017 7:22 AM FUEL CELL BUILDER) TSH 1.67 0.40 - 4.50 mIU/L RV ID [place] Specimen Blood Narrative Performed At FASTING:YES [facility] FASTING: YES Resulting Agency Comment Performing Organization Information: Site ID: [id number] Name: [facility] Address: [address] [place] [phone] Director: Janiya Dias MD Performing Organization Address [facility] [place] [address] * Hemoglobin A1c (08/17/2017 7:22 AM FUEL CELL BUILDER) Hemoglobin A1C 4.8 <5.7 % of total Hgb RV ID Comment: [place] For the purpose of screening for the presence of diabetes: <5.7% Consistent with the absence of diabetes 5.7-6.4%Consistent with increased risk for diabetes (predi abetes) > or=6.5%Consistent with diabetes This assay result is consistent with a decreased risk of diabetes. Currently, no consensus exists regarding use of hemoglobin A1c for diagnosis of diabetes in children. According to [place] Diabetes Association (ADA) guidelines, hemoglobin A1c <7.0% represents optimal control in non- diabetic patients. Different metrics may apply to specific patient populations. Standards of Medical Care in Diabetes(ADA). Specimen Blood Narrative Performed At FASTING:YES [facility] FASTING: YES Resulting Agency Comment Performing Organization Information: Site ID: A Name: [facility] Address: [address] [place] [id number] Director: Janiya Dias MD Performing Organization Address [facility] Phone Number [facility] [place] [address] * Lipid panel (08/17/2017 7:22 AM FUEL CELL BUILDER) Cholesterol, total 268 (H) <200 mg/dL [facility] HDL cholesterol 68 >50 mg/dL [facility] Triglycerides 214 (H) <150 mg/dL [facility] LDL cholesterol 162 (H) mg/dL (calc) RV ID calculated Comment: [place] Reference range: <100 Desirable range <100 mg/dL for patients with CHD or diabetes and <70 mg/dL for diabetic patients with known heart disease. LDL-C is now calculated using the Alden-Madhavi calculation, which is a validated novel method providing better accuracy than the Friedewald equation in the estimation of LDL-C. Alden LARIOS et al. LILY. 2013;310(19): 9530-6236 (http://education.[employer].[facility]/faq/BDC431) Cholesterol/HDL ratio 3.9 <5.0 (calc) [facility] Non-HDL cholesterol 200 (H) <130 mg/dL (calc) RV ID Comment: [place] For patients with diabetes plus 1 major ASCVD risk factor, treating to a non-HDL-C goal of <100 mg/dL (LDL-C of <70 mg/dL) is considered a therapeutic option. Specimen Blood Narrative Performed At FASTING:YES [facility] FASTING: YES Resulting Agency Comment Performing Organization Information: Site ID: [id number] Name: [facility] Address: [address] [place] [phone] Director: Janiya Dias MD Performing Organization Address [facility] Phone Number [facility] RV ID [address] [address] after 07/05/2017 Insurance Payer Benefit Subscriber ID Type Phone Address Plan / Group [employer] xxxxxxxxx HMO [facility] Advance Directives Patient has advance care planning documents, and code status on file. For more i nformation, please contact: Richard Arteaga [address] [place] [address] Date Inactivated Comments Code Status Date Activated 04/14/2018 11:40 PM Full Code 04/11/2018 5:43 PM Code Status decision reached by: Patient
--- OUTSIDE RECORDS SUMMARY | 2018-07-06 08:07 | XMS REPORT ---
Author Author Zackary Mcelroy [facility] eClinicalWorks Address Unknown Phone Unavailable Care Team Providers Care Powdered Sugar Pulverizer Operator Name Role Phone Zackary Mcelroy Unavailable Encounters Encounter Location Date cancelled appt. Zackary Mcelroy MD December 24, 2013 Social History Social History Element Qualifiers Date Reported Tobacco Use: . Are you a:: former smoker November 29, 2013 Caffeine: yes. frequency:, 1-5 November 29, 2013 Exercise: no. November 29, 2013 Alcohol: socially. November 29, 2013 Summary Purpose eClinicalWorks Submission
--- OUTSIDE RECORDS SUMMARY | 2018-07-06 08:07 | XMS REPORT ---
Author Author Mili Garcia Unknown Address [address] [facility]. Phone Unavailable Care Team Providers Care Pizzamaker Name Role Phone Dr. 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 Repeat yearly. 04/15/2018 1:24:00 04/16/2018 1:23:00 Completed Trinity Tablet 5-325 MG 1 tablet Tablet Oral Give 1 tablet by mouth every 4 hours as needed for Pain DC TYLENOL #3 WHEN NORCO GETS HERE 04/17/2018 12:15:00 04/18/2018 13:05:00 Aborted Trinity Tablet 10-325 MG 1 tablet Tablet Oral Give 1 tablet by mouth every 4 hours as needed for Pain 04/18/2018 13:15:00 Zanaflex Tablet 4 MG 1 tablet Tablet Oral 1 TAB(S) BY MOUTH 3 TIMES A DAY 04/20/2018 16:00:00 Tylenol with Codeine #3 Tablet 300-30 MG 1 tablet Tablet Oral Give 1 tablet by mouth every 4 hours as needed for Pain 04/14/2018 21:30:00 04/18/2018 13:05:00 Aborted Aspirin Tablet 81 MG 1 tablet Tablet Oral Give 1 tablet by mouth at bedtime for Prophylaxis 04/15/2018 20:00:00 AmLODIPine Besylate Tablet 2.5 MG 1 tablet Tablet Oral 1 TAB(S) BY MOUTH DAILY HOLD FOR SBP<110 HR<60;1 TAB(S) BY MOUTH DAILY NEEDED (IF BP>140/90) 04/15/2018 8:00:00 Montelukast Sodium Tablet 10 MG 1 tablet Tablet Oral 1 TAB(S) BY MOUTH AT BEDTIME 04/15/2018 20:00:00 Theragran-M Tablet 1 tablet Tablet Oral Give 1 tablet by mouth one time a day for Supplement 04/15/2018 8:00:00 TraMADol HCl Tablet 50 MG 1 tablet Tablet Oral Give 1 tablet by mouth every 6 hours as needed for Pain 04/14/2018 22:30:00 CloNIDine HCl Tablet 0.1 MG 1 tablet Tablet Oral 1 TAB(S) BY MOUTH EVERY 6 HOURS NEEDED FOR SOB>160 04/14/2018 21:30:00 Senna-Docusate Sodium Tablet 8.6-50 MG 2 tablet Tablet Oral Give 2 tablet by mouth two times a day for Constipation 04/15/2018 8:00:00 Fish Oil Capsule Delayed Release 1200 MG 1 capsule Capsule Delayed Release Oral Give 1 capsule by mouth two times a day for Supplement 04/15/2018 8:00:00 Losartan Potassium Tablet 100 MG 1 tablet Tablet Oral 1 TAB(S) BY MOUTH AT BEDTIME HOLD SBP<110 HR<60 04/15/2018 20:00:00 BuPROPion HCl ER (SR) Tablet Extended Release 12 Hour 150 MG 1 tablet Tablet Extended Release 12 Hour Oral 1 TAB(S) BY MOUTH EVERY 12 HOURS 04/15/2018 8:00:00 Cyanocobalamin Tablet 1000 MCG 1 tablet Tablet Oral Give 1 tablet by mouth one time a day for Supplement 04/15/2018 8:00:00 Fenofibrate Tablet 145 MG 1 tablet Tablet Oral 1 TAB(S) BY MOUTH DAILY 04/15/2018 8:00:00 Probiotic Capsule 1 tablet Capsule Oral Give 1 tablet by mouth one time a day for Supplement 04/15/2018 8:00:00 Rosuvastatin Calcium Tablet 10 MG 1 tablet Tablet Oral Give 1 tablet by mouth at bedtime for HLD 04/15/2018 20:00:00 Sertraline HCl Tablet 100 MG 1 tablet Tablet Oral 1 TAB(S) BY MOUTH DAILY 04/15/2018 8:00:00 Loratadine Tablet 10 MG 1 tablet Tablet Oral Give 1 tablet by mouth one time a day for Allergies 04/15/2018 8:00:00 Ergocalciferol Capsule 66277 UNIT 1 capsule Capsule Oral 1 CAP(S) BY MOUTH DAILY EVERY 7 DAYS (ON SUNDAYS) 04/16/2018 8:00:00 Results No Known Results Vital signs Description Observation Date INTRAVASCULAR SYSTOLIC 162.0 mm[Hg] 04/14/2018 20:06:00 INTRAVASCULAR DIASTOLIC 81.0 mm[Hg] 04/14/2018 20:06:00 BODY TEMPERATURE 97.7 [degF] 04/14/2018 20:06:00 RESPIRATION RATE 16.0 /min 04/14/2018 20:06:00 HEART BEAT 89.0 {beats}/min 04/14/2018 20:06:00 OXYGEN SATURATION 98.0 % 04/14/2018 20:06:00 PAIN LEVEL 7.0 {score} 04/15/2018 0:50:13 OXYGEN SATURATION 93.0 % 04/15/2018 0:53:00 PAIN LEVEL 0.0 {score} 04/15/2018 1:27:29 INTRAVASCULAR SYSTOLIC 134.0 mm[Hg] 04/15/2018 1:59:00 INTRAVASCULAR DIASTOLIC 90.0 mm[Hg] 04/15/2018 1:59:00 BODY TEMPERATURE 98.0 [degF] 04/15/2018 1:59:00 HEART BEAT 91.0 {beats}/min 04/15/2018 1:59:00 RESPIRATION RATE 18.0 /min 04/15/2018 1:59:00 INTRAVASCULAR SYSTOLIC 160.0 mm[Hg] 04/15/2018 8:42:00 INTRAVASCULAR DIASTOLIC 81.0 mm[Hg] 04/15/2018 8:42:00 HEART BEAT 89.0 {beats}/min 04/15/2018 8:42:00 PAIN LEVEL 5.0 {score} 04/15/2018 9:43:00 BODY WEIGHT (MEASURED) 174.0 [lb_av] 04/15/2018 11:16:00 BODY HEIGHT (MEASURED) 68.0 [in_i] 04/15/2018 11:16:00 RESPIRATION RATE 18.0 /min 04/15/2018 11:27:59 INTRAVASCULAR SYSTOLIC 160.0 mm[Hg] 04/15/2018 11:27:59 INTRAVASCULAR DIASTOLIC 81.0 mm[Hg] 04/15/2018 11:27:59 BODY TEMPERATURE 97.9 [degF] 04/15/2018 11:27:59 HEART BEAT 89.0 {beats}/min 04/15/2018 11:27:59 PAIN LEVEL 0.0 {score} 04/15/2018 14:33:51 RESPIRATION RATE 18.0 /min 04/15/2018 16:30:07 INTRAVASCULAR SYSTOLIC 124.0 mm[Hg] 04/15/2018 16:30:07 INTRAVASCULAR DIASTOLIC 70.0 mm[Hg] 04/15/2018 16:30:07 BODY TEMPERATURE 98.1 [degF] 04/15/2018 16:30:07 HEART BEAT 82.0 {beats}/min 04/15/2018 16:30:07 INTRAVASCULAR SYSTOLIC 124.0 mm[Hg] 04/15/2018 17:16:00 INTRAVASCULAR DIASTOLIC 70.0 mm[Hg] 04/15/2018 17:16:00 BODY TEMPERATURE 98.1 [degF] 04/15/2018 17:16:00 RESPIRATION RATE 18.0 /min 04/15/2018 17:16:00 HEART BEAT 82.0 {beats}/min 04/15/2018 17:16:00 OXYGEN SATURATION 96.0 % 04/15/2018 17:16:00 INTRAVASCULAR SYSTOLIC 147.0 mm[Hg] 04/15/2018 19:36:13 INTRAVASCULAR DIASTOLIC 62.0 mm[Hg] 04/15/2018 19:36:13 HEART BEAT 98.0 {beats}/min 04/15/2018 19:36:13 PAIN LEVEL 9.0 {score} 04/15/2018 19:36:33 PAIN LEVEL 9.0 {score} 04/15/2018 19:37:52 PAIN LEVEL 1.0 {score} 04/15/2018 22:45:48 PAIN LEVEL 8.0 {score} 04/16/2018 0:10:00 PAIN LEVEL 0.0 {score} 04/16/2018 1:10:00 OXYGEN SATURATION 94.0 % 04/16/2018 3:01:00 RESPIRATION RATE 18.0 /min 04/16/2018 3:34:56 INTRAVASCULAR SYSTOLIC 159.0 mm[Hg] 04/16/2018 3:34:56 INTRAVASCULAR DIASTOLIC 71.0 mm[Hg] 04/16/2018 3:34:56 BODY TEMPERATURE 97.9 [degF] 04/16/2018 3:34:56 HEART BEAT 84.0 {beats}/min 04/16/2018 3:34:56 INTRAVASCULAR SYSTOLIC 162.0 mm[Hg] 04/16/2018 8:15:54 INTRAVASCULAR DIASTOLIC 76.0 mm[Hg] 04/16/2018 8:15:54 HEART BEAT 95.0 {beats}/min 04/16/2018 8:15:54 PAIN LEVEL 8.0 {score} 04/16/2018 8:21:52 PAIN LEVEL 0.0 {score} 04/16/2018 10:00:13 RESPIRATION RATE 20.0 /min 04/16/2018 11:14:27 INTRAVASCULAR SYSTOLIC 142.0 mm[Hg] 04/16/2018 11:14:27 INTRAVASCULAR DIASTOLIC 83.0 mm[Hg] 04/16/2018 11:14:27 BODY TEMPERATURE 98.5 [degF] 04/16/2018 11:14:27 HEART BEAT 78.0 {beats}/min 04/16/2018 11:14:27 INTRAVASCULAR SYSTOLIC 144.0 mm[Hg] 04/16/2018 16:23:00 INTRAVASCULAR DIASTOLIC 77.0 mm[Hg] 04/16/2018 16:23:00 BODY TEMPERATURE 96.8 [degF] 04/16/2018 16:23:00 RESPIRATION RATE 18.0 /min 04/16/2018 16:23:00 HEART BEAT 82.0 {beats}/min 04/16/2018 16:23:00 OXYGEN SATURATION 96.0 % 04/16/2018 16:23:00 PAIN LEVEL 8.0 {score} 04/16/2018 16:38:33 PAIN LEVEL 1.0 {score} 04/16/2018 18:28:50 RESPIRATION RATE 18.0 /min 04/16/2018 18:48:25 INTRAVASCULAR SYSTOLIC 144.0 mm[Hg] 04/16/2018 18:48:25 INTRAVASCULAR DIASTOLIC 77.0 mm[Hg] 04/16/2018 18:48:25 BODY TEMPERATURE 96.8 [degF] 04/16/2018 18:48:25 HEART BEAT 82.0 {beats}/min 04/16/2018 18:48:25 INTRAVASCULAR SYSTOLIC 144.0 mm[Hg] 04/16/2018 19:51:28 INTRAVASCULAR DIASTOLIC 71.0 mm[Hg] 04/16/2018 19:51:28 HEART BEAT 90.0 {beats}/min 04/16/2018 19:51:28 PAIN LEVEL 8.0 {score} 04/16/2018 21:01:48 PAIN LEVEL 1.0 {score} 04/16/2018 21:54:42 PAIN LEVEL 7.0 {score} 04/17/2018 1:00:00 PAIN LEVEL 0.0 {score} 04/17/2018 2:00:00 RESPIRATION RATE 18.0 /min 04/17/2018 3:51:39 INTRAVASCULAR SYSTOLIC 150.0 mm[Hg] 04/17/2018 3:51:39 INTRAVASCULAR DIASTOLIC 70.0 mm[Hg] 04/17/2018 3:51:39 BODY TEMPERATURE 97.8 [degF] 04/17/2018 3:51:39 HEART BEAT 82.0 {beats}/min 04/17/2018 3:51:39 OXYGEN SATURATION 96.0 % 04/17/2018 4:35:00 INTRAVASCULAR SYSTOLIC 153.0 mm[Hg] 04/17/2018 8:35:25 INTRAVASCULAR DIASTOLIC 64.0 mm[Hg] 04/17/2018 8:35:25 HEART BEAT 77.0 {beats}/min 04/17/2018 8:35:25 PAIN LEVEL 7.0 {score} 04/17/2018 8:37:49 RESPIRATION RATE 18.0 /min 04/17/2018 9:52:18 INTRAVASCULAR SYSTOLIC 153.0 mm[Hg] 04/17/2018 9:52:18 INTRAVASCULAR DIASTOLIC 64.0 mm[Hg] 04/17/2018 9:52:18 BODY TEMPERATURE 97.9 [degF] 04/17/2018 9:52:18 HEART BEAT 77.0 {beats}/min 04/17/2018 9:52:18 PAIN LEVEL 0.0 {score} 04/17/2018 13:09:09 PAIN LEVEL 4.0 {score} 04/17/2018 16:00:00 RESPIRATION RATE 18.0 /min 04/17/2018 17:05:50 INTRAVASCULAR SYSTOLIC 138.0 mm[Hg] 04/17/2018 17:05:50 INTRAVASCULAR DIASTOLIC 67.0 mm[Hg] 04/17/2018 17:05:50 BODY TEMPERATURE 97.6 [degF] 04/17/2018 17:05:50 HEART BEAT 83.0 {beats}/min 04/17/2018 17:05:50 PAIN LEVEL 0.0 {score} 04/17/2018 17:43:29 PAIN LEVEL 4.0 {score} 04/17/2018 20:00:00 INTRAVASCULAR SYSTOLIC 142.0 mm[Hg] 04/17/2018 20:18:15 INTRAVASCULAR DIASTOLIC 62.0 mm[Hg] 04/17/2018 20:18:15 HEART BEAT 82.0 {beats}/min 04/17/2018 20:18:15 PAIN LEVEL 0.0 {score} 04/17/2018 21:27:02 PAIN LEVEL 7.0 {score} 04/18/2018 OXYGEN SATURATION 95.0 % 04/18/2018 0:24:00 PAIN LEVEL 6.0 {score} 04/18/2018 0:47:08 RESPIRATION RATE 18.0 /min 04/18/2018 1:33:43 INTRAVASCULAR SYSTOLIC 146.0 mm[Hg] 04/18/2018 1:33:43 INTRAVASCULAR DIASTOLIC 73.0 mm[Hg] 04/18/2018 1:33:43 BODY TEMPERATURE 97.9 [degF] 04/18/2018 1:33:43 HEART BEAT 83.0 {beats}/min 04/18/2018 1:33:43 PAIN LEVEL 0.0 {score} 04/18/2018 1:42:49 PAIN LEVEL 0.0 {score} 04/18/2018 7:14:21 INTRAVASCULAR SYSTOLIC 141.0 mm[Hg] 04/18/2018 8:32:48 INTRAVASCULAR DIASTOLIC 68.0 mm[Hg] 04/18/2018 8:32:48 HEART BEAT 84.0 {beats}/min 04/18/2018 8:32:48 RESPIRATION RATE 18.0 /min 04/18/2018 9:42:36 INTRAVASCULAR SYSTOLIC 141.0 mm[Hg] 04/18/2018 9:42:36 INTRAVASCULAR DIASTOLIC 68.0 mm[Hg] 04/18/2018 9:42:36 BODY TEMPERATURE 98.2 [degF] 04/18/2018 9:42:36 HEART BEAT 84.0 {beats}/min 04/18/2018 9:42:36 PAIN LEVEL 6.0 {score} 04/18/2018 10:50:05 PAIN LEVEL 0.0 {score} 04/18/2018 14:47:28 PAIN LEVEL 6.0 {score} 04/18/2018 14:47:54 RESPIRATION RATE 18.0 /min 04/18/2018 17:44:26 INTRAVASCULAR SYSTOLIC 122.0 mm[Hg] 04/18/2018 17:44:26 INTRAVASCULAR DIASTOLIC 64.0 mm[Hg] 04/18/2018 17:44:26 BODY TEMPERATURE 98.0 [degF] 04/18/2018 17:44:26 HEART BEAT 73.0 {beats}/min 04/18/2018 17:44:26 PAIN LEVEL 0.0 {score} 04/18/2018 17:51:11 PAIN LEVEL 6.0 {score} 04/18/2018 19:11:00 INTRAVASCULAR SYSTOLIC 130.0 mm[Hg] 04/18/2018 20:09:58 INTRAVASCULAR DIASTOLIC 74.0 mm[Hg] 04/18/2018 20:09:58 HEART BEAT 78.0 {beats}/min 04/18/2018 20:09:58 PAIN LEVEL 0.0 {score} 04/18/2018 20:42:14 PAIN LEVEL 6.0 {score} 04/18/2018 23:24:24 OXYGEN SATURATION 98.0 % 04/19/2018 0:32:00 RESPIRATION RATE 19.0 /min 04/19/2018 1:46:59 INTRAVASCULAR SYSTOLIC 170.0 mm[Hg] 04/19/2018 1:46:59 INTRAVASCULAR DIASTOLIC 95.0 mm[Hg] 04/19/2018 1:46:59 BODY TEMPERATURE 98.5 [degF] 04/19/2018 1:46:59 HEART BEAT 90.0 {beats}/min 04/19/2018 1:46:59 PAIN LEVEL 0.0 {score} 04/19/2018 1:49:23 PAIN LEVEL 7.0 {score} 04/19/2018 5:21:11 PAIN LEVEL 0.0 {score} 04/19/2018 6:37:35 INTRAVASCULAR SYSTOLIC 156.0 mm[Hg] 04/19/2018 8:53:31 INTRAVASCULAR DIASTOLIC 73.0 mm[Hg] 04/19/2018 8:53:31 HEART BEAT 79.0 {beats}/min 04/19/2018 8:53:31 BODY WEIGHT (MEASURED) 171.0 [lb_av] 04/19/2018 9:26:00 PAIN LEVEL 7.0 {score} 04/19/2018 9:43:06 PAIN LEVEL 0.0 {score} 04/19/2018 13:21:54 RESPIRATION RATE 18.0 /min 04/19/2018 13:25:31 INTRAVASCULAR SYSTOLIC 140.0 mm[Hg] 04/19/2018 13:25:31 INTRAVASCULAR DIASTOLIC 82.0 mm[Hg] 04/19/2018 13:25:31 BODY TEMPERATURE 97.9 [degF] 04/19/2018 13:25:31 HEART BEAT 83.0 {beats}/min 04/19/2018 13:25:31 PAIN LEVEL 7.0 {score} 04/19/2018 14:15:00 RESPIRATION RATE 18.0 /min 04/19/2018 17:07:09 INTRAVASCULAR SYSTOLIC 143.0 mm[Hg] 04/19/2018 17:07:09 INTRAVASCULAR DIASTOLIC 70.0 mm[Hg] 04/19/2018 17:07:09 BODY TEMPERATURE 98.7 [degF] 04/19/2018 17:07:09 HEART BEAT 67.0 {beats}/min 04/19/2018 17:07:09 PAIN LEVEL 1.0 {score} 04/19/2018 18:15:36 PAIN LEVEL 5.0 {score} 04/19/2018 18:27:50 INTRAVASCULAR SYSTOLIC 142.0 mm[Hg] 04/19/2018 20:10:05 INTRAVASCULAR DIASTOLIC 70.0 mm[Hg] 04/19/2018 20:10:05 HEART BEAT 74.0 {beats}/min 04/19/2018 20:10:05 OXYGEN SATURATION 99.0 % 04/19/2018 20:11:00 PAIN LEVEL 1.0 {score} 04/19/2018 22:24:45 PAIN LEVEL 5.0 {score} 04/19/2018 22:40:57 PAIN LEVEL 0.0 {score} 04/19/2018 23:00:00 PAIN LEVEL 8.0 {score} 04/20/2018 2:40:00 PAIN LEVEL 0.0 {score} 04/20/2018 3:40:00 RESPIRATION RATE 18.0 /min 04/20/2018 3:49:19 INTRAVASCULAR SYSTOLIC 133.0 mm[Hg] 04/20/2018 3:49:19 INTRAVASCULAR DIASTOLIC 62.0 mm[Hg] 04/20/2018 3:49:19 BODY TEMPERATURE 98.8 [degF] 04/20/2018 3:49:19 HEART BEAT 80.0 {beats}/min 04/20/2018 3:49:19 OXYGEN SATURATION 96.0 % 04/20/2018 4:21:00 INTRAVASCULAR SYSTOLIC 153.0 mm[Hg] 04/20/2018 8:41:58 INTRAVASCULAR DIASTOLIC 72.0 mm[Hg] 04/20/2018 8:41:58 HEART BEAT 80.0 {beats}/min 04/20/2018 8:41:58 PAIN LEVEL 6.0 {score} 04/20/2018 11:12:13 RESPIRATION RATE 18.0 /min 04/20/2018 12:14:47 INTRAVASCULAR SYSTOLIC 142.0 mm[Hg] 04/20/2018 12:14:47 INTRAVASCULAR DIASTOLIC 80.0 mm[Hg] 04/20/2018 12:14:47 BODY TEMPERATURE 98.4 [degF] 04/20/2018 12:14:47 HEART BEAT 77.0 {beats}/min 04/20/2018 12:14:47 PAIN LEVEL 1.0 {score} 04/20/2018 12:35:26 RESPIRATION RATE 18.0 /min 04/20/2018 16:35:30 INTRAVASCULAR SYSTOLIC 138.0 mm[Hg] 04/20/2018 16:35:30 INTRAVASCULAR DIASTOLIC 81.0 mm[Hg] 04/20/2018 16:35:30 BODY TEMPERATURE 98.2 [degF] 04/20/2018 16:35:30 HEART BEAT 76.0 {beats}/min 04/20/2018 16:35:30 INTRAVASCULAR SYSTOLIC 157.0 mm[Hg] 04/20/2018 19:39:02 INTRAVASCULAR DIASTOLIC 49.0 mm[Hg] 04/20/2018 19:39:02 HEART BEAT 86.0 {beats}/min 04/20/2018 19:39:02 OXYGEN SATURATION 96.0 % 04/21/2018 4:13:00 PAIN LEVEL 8.0 {score} 04/21/2018 4:40:00 PAIN LEVEL 0.0 {score} 04/21/2018 5:40:00 RESPIRATION RATE 18.0 /min 04/21/2018 6:35:30 INTRAVASCULAR SYSTOLIC 159.0 mm[Hg] 04/21/2018 6:35:30 INTRAVASCULAR DIASTOLIC 60.0 mm[Hg] 04/21/2018 6:35:30 BODY TEMPERATURE 98.0 [degF] 04/21/2018 6:35:30 HEART BEAT 72.0 {beats}/min 04/21/2018 6:35:30 PAIN LEVEL 3.0 {score} 04/21/2018 10:18:44 RESPIRATION RATE 18.0 /min 04/21/2018 10:43:43 INTRAVASCULAR SYSTOLIC 151.0 mm[Hg] 04/21/2018 10:43:43 INTRAVASCULAR DIASTOLIC 67.0 mm[Hg] 04/21/2018 10:43:43 BODY TEMPERATURE 98.1 [degF] 04/21/2018 10:43:43 HEART BEAT 70.0 {beats}/min 04/21/2018 10:43:43 Immunizations Vaccine Date Status Reason Influenza, seasonal, injectable 04/06/2017 Completed pneumococcal polysaccharide vaccine, 23 valent 11/07/2017 Completed tuberculin skin test; purified protein derivative solution, intradermal 04/14/2018 Completed Social History Smoking Status Start Date End Date Unknown if ever smoked 04/21/2018 14:43:35
--- OUTSIDE RECORDS SUMMARY | 2018-07-06 08:07 | XMS REPORT ---
Author Author Fide Dexter [facility] [place] eClinicalWorks Address Unknown Phone Unavailable Care Team Providers Care Tax Manager Public Name Role Phone Fide Dexter Unavailable Encounters Encounter Location Date cancelled appt. Zackary Mcelroy MD December 24, 2013 Unknown Zackary Mcelroy MD November 29, 2013 Follow-up Zackary Mcelroy MD January 10, 2014 Problems Problem Type Condition ICD-9 Code Onset Dates Condition Status Problem Bursitis, Hip 726.5 Active Problem Cervical spondylosis with myelopathy 721.1 Active Problem Osteoarthrosis, multiple sites 715.09 Active Social History Social History Element Qualifiers Date Reported Tobacco Use: . Are you a:: former smoker November 29, 2013 Caffeine: yes. frequency:, 1-5 November 29, 2013 Exercise: no. November 29, 2013 Alcohol: socially. November 29, 2013 Summary Purpose eClinicalWorks Submission
--- OUTSIDE RECORDS SUMMARY | 2018-07-06 08:07 | XMS REPORT ---
Author Author Fide Dexter [facility] eClinicalWorks Address Unknown Phone Unavailable Care Team Providers Care Dope House Operator Helper Name Role Phone Fide Dexter Unavailable Allergies, Adverse Reactions, Alerts Substance Reaction Event Type Sular Info Not Available Drug Allergy Encounters Encounter Location Date cancelled appt. Zackary Mcelroy MD December 24, 2013 Unknown Zackary Mcelroy MD November 29, 2013 Follow-up Zackary Mcelroy MD January 10, 2014 Problems Problem Type Condition ICD-9 Code Onset Dates Condition Status Problem Bursitis, Hip 726.5 Active Problem Cervical spondylosis with myelopathy 721.1 Active Problem Osteoarthrosis, multiple sites 715.09 Active Assessment Cervical spondylosis with myelopathy 721.1 Active Assessment Osteoarthrosis, multiple sites 715.09 Active Assessment Bursitis, Hip 726.5 Active Medications Medication Code System Code Instructions Start Date End Date Status Dosage Estradiol [facility] [address]-52 1 MG Orally Daily for Three Weeks, 1 Week off Active 1 tablet Loratadine [facility] [address]-30 10 MG Orally Once a day Active 1 tablet Tramadol Unknown 0 50 mg orally every 4-6 hours prn pain Active one tab Vitamin B-12 [facility] [address]-94 2500 MCG Sublingual Active as directed Sertraline HCl [facility] [address]-70 100 MG Orally Once a day Active 1 tablet Calcium [facility] [address] 600 MG Orally Twice a day Active 1 tablet with meals Centrum Silver [facility] [address]-72 Orally Active as directed Dicyclomine HCl [facility] [address]-96 20 MG Orally Four times a day Active 1 tablet Omeprazole [facility] [address]-26 40 MG Orally Once a day Active 1 capsule Fiber Unknown 0 Orally Active as directed Atenolol [facility] [address]-43 25 MG Orally Once a day Active 1 tablet Fish Oil [facility] [address]71-[address] 1200 MG Orally Once a day Active 1 capsule Social History Social History Element Qualifiers Date Reported Tobacco Use: . Are you a:: former smoker November 29, 2013 Caffeine: yes. frequency:, 1-5 November 29, 2013 Exercise: no. November 29, 2013 Alcohol: socially. November 29, 2013 Vital Signs Date/Time: November 29, 2013 Weight 174 lbs Height 68 in Temperature 98.1 F Cardiac Monitoring Heart Rate 72 /min Blood Pressure Diastolic 60 mm Hg Blood Pressure Systolic 156 mm Hg Summary Purpose eClinicalWorks Submission
--- OUTSIDE RECORDS SUMMARY | 2018-07-06 08:07 | XMS REPORT ---
Author Author [facility] Address Unknown Phone Unavailable Care Team Providers Care Lactation Consultant Name Role Phone HUMERA KRAMER Unavailable Unavailable Problems This patient has no known problems. Allergies, Adverse Reactions, Alerts This patient has no known allergies or adverse reactions. Medications This patient has no known medications. Results Test Description Test Time Test Comments Text Results Atomic Results Result Comments MAMMOGRAPHY DIGITAL SCR BILAT [address] [address] Patient Name: YAYO FLORES MR #: [id number] : 1945 Age/Sex: 71/F Req #: [id number] [facility] Physician: Ordered by: HUMERA KRAMER MD Report #: [id number] Location: MAMMO Room/Bed: Procedure: [id number] MG/MAMMOGRAPHY DIGITAL SCR BILAT Exam Date: 05/27/17 Exam Time: 1046 REPORT STATUS: Signed #[id number] - [id number] #BILATERAL DIGITAL SCREENING MAMMOGRAM WITH CAD: 05/27/2017 CLINICAL: Routine screening. Comparison is made to exams dated: 05/11/2016 mammogram, 03/07/2015 mammogram and 02/13/2014 mammogram - [facility]. Current study contains 4 films. The tissue of both breasts is heterogeneously dense. This may lower the sensitivity of mammography. Current study was also evaluated with a Computer Aided Detection (CAD) system. There are benign densities and lymph nodes in both breasts. There also are benign scattered calcifications in both breasts. Additionally there is a biopsy clip in both breasts. No significant masses, calcifications, or other findings are seen in either breast. There has been no significant interval change. IMPRESSION: BENIGN There is no mammographic evidence of malignancy. A 1 year screening mammogram is recommended. The patient will be notified by letter of the results. Nia sosa/noemí:06/11/2017 10:48:34 Environmental Permitting Specialist: Nikki HATHAWAY(R)(M), [facility] letter sent: Compared to Prior B9 Mammogram BI- RADS: 2 Benign Dictated By: NIA SANCHEZ DO 1048 Transcribed By: NOEMÍ on 06/11/17 1048 COPY TO: HUMERA KRAMER MD
[2018-07-06 10:40] VITALS: BP 131/64
== END | disposition home or self-care (01) ==
LOC: OR 08:03
PROVIDERS: ATTEND Ophthalmology
DX: H25.12 Age-related nuclear cataract, left eye (principal); I10 Essential (primary) hypertension; F32.9 Major depressive disorder, single episode, unspecified; Z01.810 Encounter for preprocedural cardiovascular examination; Z01.812 Encounter for preprocedural laboratory examination; Z01.818 Encounter for other preprocedural examination; Z79.82 Long term (current) use of aspirin; Z88.2 Allergy status to sulfonamides; Z91.048 Other nonmedicinal substance allergy status
CPT/HCPCS: 36415; 66984; 80048; 85025; 93005; J0171; J2001 ×3; J2250; J2704; V2632

== ENCOUNTER 2018-08-20 11:15 | Emergency (ER) | payer OTHER ==
[~2018-08-20] VITALS: Ht 172.7 cm; Wt 74.8 kg
[~2018-08-20 11:15] MED LIST changes: -CHONDR SU A NA/HYALUR SOD 1 EACH KIT IO ONE; -CYCLOPENTOLATE HCL 2% OPTH SOLN 2 ML BTL OP ONE; -EPINEPHRINE HCL INJ 1 MG/ML AMP ONE; -FENTANYL CITRATE/PF 100MCG/2 ML INJ ONE; -GATIFLOXACIN(OPTH) 5 ML LIQD ONE; -LIDOCAINE 2% /EPINEPHRINE 20 ML SDV INJ ONE; -LIDOCAINE 2%/ EPINEPHRINE 20ML MDV ONE; -LIDOCAINE HCL 2% LOCAL INJ 5 ML SDV VIAL INJ ONE; -LIDOCAINE HCL-PF 4% 40 MG/1 ML 5ML AMP ONE; -MIDAZOLAM HCL 2 MG/2 ML VIAL ONE; -PHENYLEPHRINE HCL 2 ML DROPS ONE; -PILOCARPINE HCL(OPTH) 15 ML LIQD ONE; -POVIDONE IODINE 5% (OPTH) 30 ML BTL ONE; -PROPOFOL IV EMULSION 10 MG/ML 20 ML VIAL ONE; -TOBRAMYCIN/DEXAMETHASONE(OPTH) 3.5 GM TUBE ONE
--- OUTSIDE RECORDS SUMMARY | 2018-08-20 11:20 | XMS REPORT | Clinical Summary ---
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 Active omega 1-ffp-ndc-fish oil Take 1 tablet 0 (FISH OIL) [...] ointmentIndications: (two) times a Angular cheilitis day. 09/06/2017 Discontinued traMADol (ULTRAM) 50 mg Take [...] 1,000 0 tablet mcg by mouth daily. 08/19/2017 cefdinir (OMNICEF) 300 MG Take 1 [...] for sleep for up to 30 days. 08/11/2018 ibuprofen (ADVIL,MOTRIN) Take 1 tablet 60 tablet 0 800 MG tablet (800 mg 8 total) by mouth 2 (two) times a day as needed for mild pain for up to 30 days. Active Problems Problem Noted Date Enthesopathy of hip 07/17/2018 Cervical spondylosis with myelopathy 07/17/2018 Screening for breast cancer 05/14/2018 Major depressive disorder, single episode, unspecified 04/14/2018 Anxiety disorder, unspecified 04/14/2018 History of total left knee replacement 04/12/2018 OA (osteoarthritis) of knee 04/11/2018 Left foot pain 04/10/2018 Urinary tract infection without hematuria 04/07/2018 Abrasion 03/21/2018 Cataracta 09/19/2017 Lumbar radiculopathy 11/10/2016 Complex tear of lateral meniscus of left knee as current injury 06/09/2016 Acute medial meniscus tear of left knee 05/20/2016 Left knee pain 05/10/2016 Primary osteoarthritis of left knee 05/10/2016 Encounters Care Team Description Date Type Specialty Surjit Felton Jr., MD History of total left knee replacement (Primary Dx) 07/12/2018 Office Visit Orthopedic Surgery Darshan Rodriges MD Vitamin D deficiency (Primary Dx); Other iron deficiency anemia; Abnormal blood chemistry; Angular cheilitis 06/20/2018 Office Visit Internal Medicine aDrshan Rodriges MD 05/31/2018 Hospital Radiology Encounter Darshan [...] MD 03/17/2018 Hospital General Surgery Encounter Whit Lawrence MA 03/17/2018 Telephone Orthopedic Surgery Surjit Felton Jr., MD Primary osteoarthritis of left knee (Primary Dx) 03/16/2018 Orders Only Orthopedic Surgery Whit Lawrence MA 03/15/2018 Telephone Orthopedic Surgery Yvette Muro MD 03/13/2018 Anesthesia General Surgery Event Surjit Felton Jr., MD Preoperative testing 03/13/2018 Hospital General Surgery Encounter Surjit Felton Jr., MD 03/13/2018 Surgery General Surgery Whit Lawrence MA 03/07/2018 Telephone Orthopedic Surgery Whit Lawrence MA 03/07/2018 Telephone Orthopedic Surgery Surjit Felton Jr., MD Preoperative testing (Primary Dx); Pre-op evaluation; Essential hypertension; Mixed hyperlipidemia; Former tobacco use 03/06/2018 Pre-Admit Pre-Admission Testing Testing Appointment Zari Stanton FNP Primary osteoarthritis of left knee (Primary Dx) 03/06/2018 Office Visit Orthopedic Surgery Surjit Felton Jr., MD 03/06/2018 Hospital Radiology Encounter Keith Gonzalez, MA 03/06/2018 Telephone Internal Medicine Darshan Rodriges MD [...] Former tobacco use 01/18/2018 Hospital Radiology Encounter Keith Gonzalez, MA 01/16/2018 Telephone Internal Medicine Darshan Rodriges MD [...] knee (Primary Dx) 11/22/2017 Clinical Sports Medicine Support Teodoro Dillard MD 11/21/2017 Telephone Orthopedic Surgery Teodoro Dillard MD Lumbar strain, initial encounter (Primary Dx); Primary osteoarthritis of left knee 11/17/2017 Office Visit Sports Medicine Tahir Nowak MD 11/05/2017 Documentation Gastroenterology Darshan Rodriges MD Lumbar radiculopathy 10/31/2017 Hospital Radiology Encounter Janina Kat MA 10/31/2017 Telephone GastroenterDarshan Cotto MD 10/31/2017 Orders Only Internal Medicine Darhsan Rodriges MD Lumbar radiculopathy (Primary Dx); Essential hypertension 10/26/2017 Office Visit Internal Medicine Keith Gonzalez MA 10/26/2017 Orders Only Internal Medicine Janina Kat MA 10/20/2017 Telephone Darshan Watson MD 10/20/2017 Telephone Internal Medicine Edith Dutton [...] Rodriges MD 08/22/2017 Orders Only Internal Medicine after 08/19/2017 Family History Medical History Relation Name Comments Cancer Brother leukemia Colon polyps Father Adarsh Mcnamara Cancer Maternal Aunt Cancer Maternal Uncle Cancer Mother lung Relation Name Status Comments Brother Alive leukemia Father Adarsh [place] OF CHF. Anders Maternal Aunt lung [...] Vital Signs Time Taken Vital Sign Reading 07/12/2018 2:16 PM NURSE EMERGENCY Blood Pressure 133/68 07/12/2018 2:16 PM NURSE EMERGENCY Pulse 82 04/14/2018 4:07 PM CDT Temperature 36.8 C (98.2 F) 06/20/2018 11:54 AM NURSE EMERGENCY Respiratory Rate 20 06/20/2018 11:54 AM NURSE EMERGENCY Oxygen Saturation 98% - Inhaled Oxygen - Concentration 07/12/2018 2:16 PM NURSE EMERGENCY Weight 77.1 kg (170 lb) 07/12/2018 2:16 PM NURSE EMERGENCY Height 172.7 cm (5' 8") 07/12/2018 2:16 PM NURSE EMERGENCY Body Mass Index 25.85 Plan of Treatment Health Maintenance Due Date Last Done Comments SHINGLES VACCINES (1 of 1996 2) PNEUMOCOCCAL-13 2011 BREAST CANCER SCREENING 05/30/2020 05/30/2018, 05/30/2018, 05/19/2018, Additional history exists COLON CANCER SCREENING 08/09/2024 08/09/2014 PNEUMOCOCCAL Completed 11/07/2017 POLYSACCHARIDE VACCINE AGE 65 AND OVER INFLUENZA VACCINE Completed 03/29/2018, 12/21/2017, 04/08/2017, Additional history exists Implants Device Identifier Shelf Expiration Date Model / Serial / Lot Implanted Type Area Manufactur er 01/01/2028 [id number] / / [id number] Journey Ii Bcs Femoral Oxin Lt Sz 5 IPM Left: Knee CHARLES & - [id number] IMPLANT NEPHEW Implanted: Qty: 1 on 04/11/2018 by DEVICES Surjit Trinidad Jr., MD 01/18/2028 [id number] / / [id number] Journey Ii Bcs Xlpe Art Insert Sz IPM Left: Knee CHARLES & 3-4 Lt 9mm - [id number] IMPLANT NEPHEW Implanted: Qty: 1 on 04/11/2018 by DEVICES Surjit Trinidad Jr., MD CS 05/01/2027 [id number] / / [id number] Patella Knee Rsrfcng 32mm Std Knee Joint Left: Knee CHARLES AND Journey - [id number] Implants NEPHEW Implanted: Qty: 1 on 04/11/2018 by ORTHOPEDIC Surjit Felton Jr., MD S 02/12/2028 [id number] / / [id number] Baseplate Tib Journey N-Por Lt Sz 3 Knee Joint Left: Knee CHARLES AND - [id number] Implants NEPHEW Implanted: Qty: 1 on 04/11/2018 by ORTHOPEDIC Surjit Felton Jr., MD S 07/07/2019 [id number] / / [id number] Cement Bone Gm Hiviscocty 40gr Surgical Left: Knee DEPUY Smartmix - [id number] Bone ORTHO-KNEE Implanted: Qty: 2 on 04/11/2018 by Surjit San Jr., MD Procedures Comments Procedure Name Priority Date/Time Associated Diagnosis VITAMIN D 25 HYDROXY Routine 06/20/2018 Vitamin D deficiency LEVEL 12:28 PM NURSE EMERGENCY Abnormal blood chemistry COMPREHENSIVE METABOLIC Routine 06/20/2018 Abnormal blood chemistry PANEL 12:28 PM NURSE EMERGENCY CRP HIGH SENSITIVITY Routine 06/20/2018 Abnormal blood chemistry 12:28 PM NURSE EMERGENCY FERRITIN LEVEL Routine 06/20/2018 Other iron deficiency 12:28 PM NURSE EMERGENCY anemia Abnormal blood chemistry CBC WITH PLATELET AND Routine 06/20/2018 Other iron deficiency DIFFERENTIAL 12:28 PM NURSE EMERGENCY anemia Abnormal blood chemistry XR KNEE 1 [...] PATHOLOGY Routine 04/11/2018 REQUEST 1:19 PM CDT RI AN PERIPHERAL BLOCK Routine 04/11/2018 PROCEDURE FOR PAIN 12:39 PM CDT Procedure Note - Gagan Cooper MD - 04/11/2018 12:39 PM CDT Peripheral Block Performed by: GAGAN COOPER Authorized by: GAGAN COOPER Patient Location: Holding area Reason for Block: at surgeon's request, post-op pain management , procedure for pain Staff: Anesthesio logist: GAGAN COOPER Performed by: Bonilla cardenas Preprocedu re: patient identified , IV checked, [...] comfortabl e and patient tolerated procedure well RI AN PERIPHERAL BLOCK Routine 04/11/2018 POST-OP PAIN 12:39 PM CDT Procedure Note - Gagan Cooper MD - 04/11/2018 12:39 PM CDT Peripheral Block Performed by: GAGAN COOPER Authorized by: GAGAN COOPER Patient Location: Holding area Reason for Block: at surgeon's request, post-op pain management , procedure for pain Staff: Bonilla cardenas: GAGAN COOPER Performed by: Bonilla cardenas Preprocedu re: patient identified , IV checked, [...] AND SCREEN Routine 03/17/2018 6:50 AM CDT RI AN PERIPHERAL BLOCK Routine 03/13/2018 POST-OP PAIN 7:02 AM CDT Procedure Note - Yvette Muro MD - 03/13/2018 7:02 AM CDT Peripheral Block Performed by: YVETTE MURO Authorized by: YVETTE MURO Patient Location: Holding area Start Time: 03/13/2018 7:04 AM End Time: 03/13/2018 7:10 AM Reason for Block: post-op pain management Staff: Anesthesio logist: YVETTE MURO Performed by: Anesthesio logist Preprocedu [...] 1:14 PM CDT Essential hypertension COLOR DOPPLER (39301) Mixed hyperlipidemia Former tobacco use XR CHEST [...] knee pain, 2:15 PM CDT unspecified chronicity RI ARTHROCENTESIS Routine 12/06/2017 Primary osteoarthritis of ASPIR&/INJ MAJOR JT/BURSA 1:15 PM CDT left knee W/O US RI ARTHROCENTESIS Routine 11/29/2017 Primary osteoarthritis of ASPIR&/INJ MAJOR JT/BURSA 1:15 PM CDT left knee W/O US RI ARTHROCENTESIS Routine 11/22/2017 Primary osteoarthritis of ASPIR&/INJ MAJOR JT/BURSA 1:15 PM CDT left knee W/O US XR LUMBAR SPINE COMPLETE Routine 10/31/2017 Lumbar radiculopathy 4+ VW 12:37 PM CDT XR LUMBAR SPINE COMPLETE Routine 10/31/2017 4+ VW URINALYSIS, COMPLETE, Routine 10/26/2017 Essential hypertension WITH REFLEX TO CULTURE 3:09 PM CDT URINE CULTURE Routine 10/26/2017 3:09 PM CDT MEASURE BLOOD PRESSURE Routine 10/26/2017 after 08/19/2017 Results * Vitamin D 25 hydroxy level (06/20/2018 12:28 PM NURSE EMERGENCY) Only the most recent of 2 results within the time period is included. Vitamin D, 25-hydroxy 40 30 - 100 ng/mL clypd Comment: [facility]K Vitamin D Status 25-OH Vitamin D: Deficiency: <20 ng/mL Insufficiency: 20 - 29 ng/mL Optimal: > or=30 ng/mL For 25-OH Vitamin D testing on patients on D2-supplementation and patients for whom quantitation of D2 and D3 fractions is required, the QuestAssureD(TM) 25-OH VIT D, (D2,D3), LC/MS/MS is recommended: order code 39746 (patients >2yrs). For more information on this test, go to: http://education.Help Scout/faq/MNG377 (This link is being provided for informational/educational purposes only.) Specimen Blood Narrative Performed At FASTING:UNKNOWN [facility] FASTING: UNKNOWN Resulting Agency Comment Performing Organization Information: Site ID: [id number] Name: [facility] Address: [address] [place] [phone] Director: Janiya Dias Performing Organization Address City/State/Zipcode Phone Number [email or web address] [place] [phone] * CBC with platelet and differential (06/20/2018 12:28 PM NURSE EMERGENCY) Only the most recent of 6 results within the time period is included. WBC 8.3 3.8 - 10.8 Thousand/uL clypd [facility] RBC 4.21 3.80 - 5.10 Million/uL clypd [facility] HGB 12.2 11.7 - 15.5 g/dL clypd [facility] HCT 37.4 35.0 - 45.0 % clypd [facility] MCV 88.8 80.0 - 100.0 fL clypd [facility] MCH 29.0 27.0 - 33.0 pg clypd [facility] MCHC 32.6 32.0 - 36.0 g/dL clypd [facility] RDW 13.1 11.0 - 15.0 % clypd [facility] Platelet count 217 140 - 400 Thousand/uL clypd [facility] MPV 12.2 7.5 - 12.5 fL clypd [facility]K Neutrophils, absolute 5,876 1,500 - 7,800 cells/uL [facility] Lymphocytes, absolute 1,602 850 - 3,900 cells/uL [facility] Monocytes, absolute 589 200 - 950 cells/uL [facility] Eosinophils, absolute 141 15 - 500 cells/uL [facility] Basophils, absolute 91 0 - 200 cells/uL [facility] Neutrophils 70.8 % clypd [facility] Lymphocytes 19.3 % clypd [facility] Monocytes 7.1 % clypd [facility] Eosinophils 1.7 % clypd FORK Basophils + RC 1.1 % clypd FORK Specimen Blood Narrative Performed At FASTING:UNKNOWN [facility] FASTING: UNKNOWN Resulting Agency Comment Performing Organization Information: Site ID: [id number] Name: [facility] Address: [address] [place] [id number] Director: Janiya Dias Performing Organization Address [facility] Phone Number [facility] [employer] [address] [address] * CRP high sensitivity (06/20/2018 12:28 PM NURSE EMERGENCY) CRP, high sensitivity 2.9 mg/L [facility] Comment: [facility] Average relative II cardiovascular risk according to [...] Performing Organization Information: Site ID: [id number] [facility]: [facility] Address: [address] [place] [address] Director: Dr. Alphonse Bain Performing Organization Address [facility]/Zipcode Phone Number [facility] [address] [place] [address] II * Ferritin level (06/20/2018 12:28 PM NURSE EMERGENCY) Ferritin level 51 20 - 288 ng/mL clypd [facility]K Specimen Blood Narrative Performed At FASTING:UNKNOWN [facility] FASTING: UNKNOWN Resulting Agency Comment Performing Organization Information: Site ID: [id number] Name: [facility] Address: [address] [place] [address] Director: Janiya Dias Performing Organization Address City/State/Zipcode Phone Number [facility] [address] [place] [address] * Comprehensive metabolic panel (06/20/2018 12:28 PM NURSE EMERGENCY) Only the most recent of 4 results within the time period is included. Glucose 87 65 - 99 mg/dL clypd Comment: [facility]K Fasting reference interval BUN, whole blood 25 7 - 25 mg/dL clypd [facility] Creatinine 0.98 (H) 0.60 - 0.93 mg/dL clypd Comment: FORK For patients >49 years of age, the reference limit for Creatinine is approximately 13% higher for people identified as -Italian. EGFR Non-Afr. Italian 58 (L) > OR=60 mL/min/1.73m2 clypd [facility]K EGFR 67 > OR=60 mL/min/1.73m2 clypd FORK BUN/creatinine ratio 26 (H) 6 - 22 (calc) clypd [facility]K Sodium 141 135 - 146 mmol/L clypd [facility] Potassium 4.3 3.5 - 5.3 mmol/L clypd [facility] Chloride 103 98 - 110 mmol/L clypd [facility] CO2 31 20 - 32 mmol/L clypd [facility] Calcium 10.6 (H) 8.6 - 10.4 mg/dL clypd [facility] Protein 7.0 6.1 - 8.1 g/dL clypd [facility] Albumin, S 4.4 3.6 - 5.1 g/dL clypd [facility] Globulin, total 2.6 1.9 - 3.7 g/dL (calc) clypd FORK Albumin/globulin ratio 1.7 1.0 - 2.5 (calc) clypd [facility] Total bilirubin 0.5 0.2 - 1.2 mg/dL clypd [facility] Alkaline phosphatase 50 33 - 130 U/L clypd [facility] AST 18 10 - 35 U/L clypd [facility] ALT 12 6 - 29 U/L clypd FORK Specimen Blood Narrative Performed At FASTING:UNKNOWN [facility] FASTING: UNKNOWN Resulting Agency Comment Performing Organization Information: Site ID: [id number] Name: [facility] Address: [address] [place] [address] Director: Janiya Dias Performing Organization Address [facility] Phone Number [facility] [employer] JA[place] [address] [place], [place] [phone] * XR Knee 1 Or 2 Vw Left (05/31/2018 11:23 AM CDT) Only the most recent of 2 results within the time period is included. Narrative Performed At [facility] Clinical: knee replacement Comparison: 04/11/18 Impression : s/p TKA without acute complication. Performing Organization Address [facility] Phone Number [facility] [address] [place] [address] * US Breast Complete Left (05/30/2018 3:02 [...] Performing Organization Address City/State/Zipcode Phone Number [facility] [address] [place] [address] * Mammo Breast Diagnostic Tomosynthesis Left (05/30/2018 [...] [id number] Performing Organization Address City/State/Zipcode Phone Number [facility] [address] [place] [address] * Mammo Breast Screen Tomosynthesis Bilateral (05/19/2018 11:32 AM CDT) Narrative Performed At PROCEDURE:MAMMO BREAST SCREEN TOMOSYNTHESIS [id number]/12/2018 11:18 AM [facility] This patient's mammogram was interpreted with the [...] indicated. This facility is accredited by [employer] for Mammography. A negative x-ray report should not delay biopsy if a dominant or clinically suspicious mass is present. Not all cancers are identified by x-ray. [id number] The results of this exam have been sent to the patient. Performing Organization Address City/[facility]/Zipcode Phone Number [facility] [address] [place] [address] * Estimated GFR (04/13/2018 4:15 AM CDT) Only the most recent of 4 results within the time period is included. GFR Non Af Amer 62 mL/min/1.73 m2 [facility] DEPARTMENT OF PATHOLOGY AND GENOMIC MEDICINE GFR Af Amer 75 mL/min/1.73 m2 [facility] DEPARTMENT OF Comment: PATHOLOGY AND Chronic kidney [...] Americans. Specimen Plasma specimen Performing Organization Address City/[facility]/Zipcode Phone Number [place] [phone] [place] [address] PATHOLOGY AND [address] [employer] MEDICINE * Basic metabolic panel (04/13/2018 4:15 AM CDT) Only the most recent of 2 results within the time period is included. Sodium 140 135 - 148 mEq/L [facility] DEPARTMENT OF PATHOLOGY AND GENOMIC MEDICINE Potassium 3.9 3.5 - 5.0 mEq/L [facility] DEPARTMENT OF PATHOLOGY AND GENOMIC MEDICINE Chloride 101 98 - 112 mEq/L [facility] DEPARTMENT OF PATHOLOGY AND GENOMIC MEDICINE CO2 30 24 - 31 mEq/L [facility] DEPARTMENT OF PATHOLOGY AND GENOMIC MEDICINE Anion gap 9@ANIO 7 - 15 mEq/L [facility] DEPARTMENT OF PATHOLOGY AND GENOMIC MEDICINE BUN 20 8 - 23 mg/dL [facility] DEPARTMENT OF PATHOLOGY AND GENOMIC MEDICINE Creatinine 0.9 0.5 - 0.9 mg/dL [facility] DEPARTMENT OF PATHOLOGY AND GENOMIC MEDICINE Glucose 117 (H) 65 - 99 mg/dL [facility] DEPARTMENT OF PATHOLOGY AND GENOMIC MEDICINE Calcium 9.5 8.8 - 10.2 mg/dL [facility] DEPARTMENT OF PATHOLOGY AND GENOMIC MEDICINE Specimen Plasma specimen Performing Organization Address [facility]/Zipcode Phone Number [address] [place] [address] PATHOLOGY AND GENOMIC MEDICINE * Surgical pathology request (04/11/2018 1:19 PM CDT) [facility] DEPARTMENT OF PATHOLOGY AND GENOMIC MEDICINE Surgical pathology report See link below for PDF Lab [facility] DEPARTMENT OF Report PATHOLOGY AND GENOMIC MEDICINE Result status This is Final Report for [facility] [id number] PATHOLOGY AND GENOMIC MEDICINE Performing Organization Address [facility] Phone Number [address] [place] [address] PATHOLOGY AND GENOMIC MEDICINE * Urinalysis screen and microscopy, with reflex to culture (04/11/2018 10:22 AM CDT) Only the most recent of 3 results within the time period is included. Specimen site Clean catch [facility] DEPARTMENT OF PATHOLOGY AND GENOMIC MEDICINE Color, UA Yellow [facility] DEPARTMENT OF PATHOLOGY AND GENOMIC MEDICINE Appearance, UA Slightly-Cloudy [facility] DEPARTMENT OF PATHOLOGY AND GENOMIC MEDICINE Specific gravity, UA 1.019 1.001 - 1.035 [facility] DEPARTMENT OF PATHOLOGY AND GENOMIC MEDICINE pH, UA 5.0 5.0 - 8.5 [facility] DEPARTMENT OF PATHOLOGY AND GENOMIC MEDICINE Protein, UA Negative Negative [facility] DEPARTMENT OF PATHOLOGY AND GENOMIC MEDICINE Glucose, UA Negative Negative [facility] DEPARTMENT OF PATHOLOGY AND GENOMIC MEDICINE Ketones, UA Trace (A) Negative [facility] DEPARTMENT OF PATHOLOGY AND GENOMIC MEDICINE Bilirubin, UA Negative Negative [facility] DEPARTMENT OF PATHOLOGY AND GENOMIC MEDICINE Blood, UA Negative Negative [facility] DEPARTMENT OF PATHOLOGY AND GENOMIC MEDICINE Nitrite, UA Negative Negative [facility] DEPARTMENT OF PATHOLOGY AND GENOMIC MEDICINE Urobilinogen, UA Negative <2.0 [facility] DEPARTMENT OF PATHOLOGY AND GENOMIC MEDICINE Leukocyte esterase, UA Negative Negative [facility] DEPARTMENT OF PATHOLOGY AND GENOMIC MEDICINE Epithelial cells, UA Few /HPF [facility] DEPARTMENT OF PATHOLOGY AND GENOMIC MEDICINE Round epithelial cells, Few 0 - 1 /HPF [facility] DEPARTMENT OF UA PATHOLOGY AND GENOMIC MEDICINE WBC, UA 0-5 0 - 4 /HPF [facility] DEPARTMENT OF PATHOLOGY AND GENOMIC MEDICINE RBC, UA 0-5 0 - 5 /HPF [facility] DEPARTMENT OF PATHOLOGY AND GENOMIC MEDICINE Bacteria, UA None seen None seen [facility] DEPARTMENT OF PATHOLOGY AND GENOMIC MEDICINE Yeast, UA None seen [facility] DEPARTMENT OF PATHOLOGY AND GENOMIC MEDICINE Yeast with pseudohyphae, None seen [facility] DEPARTMENT OF UA PATHOLOGY AND GENOMIC MEDICINE Calcium oxalate crystals, Many [facility] DEPARTMENT UA PATHOLOGY AND GENOMIC MEDICINE Specimen Urine Performing Organization Address City/[facility] Phone Number [address] [place] [phone] PATHOLOGY AND GENOMIC MEDICINE * Urine culture (04/11/2018 10:22 AM CDT) Only the most recent of 4 results within the time period is included. Urine culture SEE COMMENTComment: [facility] DEPARTMENT OF Bacteriuria screen negative. PATHOLOGY AND GENOMIC MEDICINE Specimen Urine Performing Organization Address [facility] Hospitalcowv Phone Number [address] [place] [address] PATHOLOGY AND GENOMIC MEDICINE * ECG 12 lead (04/07/2018 3:20 PM CDT) Only the most recent of 4 results within the time period is included. Ventricular rate 65 [facility] Atrial rate 68 [facility] RI interval 172 [facility] QRSD interval 90 [facility] QT interval 396 [facility] QTC interval 411 [facility] P axis 1 79 [facility] QRS axis 1 66 [facility] T wave axis 77 [facility] EKG impression Normal sinus rhythm with sinus [facility] arrhythmia-Normal ECG-In automated comparison with ECG of 06-MAR-2018 13:09,-No significant change was found- Performing Organization Address City/[facility] Phone Number [facility] MUSE [address] [place] [address] * Partial thromboplastin time, activated (04/07/2018 3:15 PM CDT) Only the most recent of 3 results within the time period is included. PTT 28.1 23.0 - 36.0 sec [facility] DEPARTMENT OF Comment: PATHOLOGY AND PTT therapeutic range for [facility] unfractionated heparin is 61.0-112.0 seconds which corresponds to Anti-Xa 0.3-0.7 U/ml. Specimen Blood Performing Organization Address [facility] Phone Number [address] [place] [address] PATHOLOGY AND GENOMIC MEDICINE * Prothrombin time with INR (04/07/2018 3:15 PM CDT) Only the most recent of 3 results within the time period is included. Prothrombin time 12.8 12.0 - 15.0 sec [facility] DEPARTMENT OF PATHOLOGY AND GENOMIC MEDICINE INR 1.0 [facility] DEPARTMENT OF Comment: PATHOLOGY AND The International Normalized GENOMIC MEDICINE Ratio (INR) is a therapeutic monitoring tool for patients who are stable on oral anticoagulant therapy. An INR of 2.0-3.0 is suggested for deep vein thrombosis/pulmonary embolism. Specimen Blood Performing Organization Address [facility] Phone Number [address] [place] [address] PATHOLOGY AND GENOMIC MEDICINE * Gram stain (04/07/2018 3:15 PM CDT) Only the most recent of 2 results within the time period is included. Gram stain result No WBC's or organisms seen. [facility] DEPARTMENT OF Comment: PATHOLOGY AND Specimen Information [facility] MEDICINE Specimen Source: Urine Specimen Site: Clean catch Specimen Urine Performing Organization Address [facility] Phone Number [address] [address] PATHOLOGY AND GENOMIC MEDICINE * Type and screen (04/07/2018 3:15 PM CDT) Only the most recent of 3 results within the time period is included. ABO grouping A [facility] DEPARTMENT OF PATHOLOGY AND GENOMIC MEDICINE Rh type NEG [facility] DEPARTMENT OF PATHOLOGY AND GENOMIC MEDICINE Antibody screen NEG [facility] DEPARTMENT OF PATHOLOGY AND GENOMIC MEDICINE Specimen Blood Performing Organization Address [facility] Phone Number [address] [place] [address] PATHOLOGY AND GENOMIC MEDICINE * MRSA screen culture (04/07/2018 3:15 PM CDT) Only the most recent of 2 results within the time period is included. MRSA screen culture No Methicillin Resistant [facility] DEPARTMENT OF isolate Staphylococcus aureus PATHOLOGY AND isolated. [facility] Comment: Specimen Information Specimen Source: Nares Specimen Site: Not specified Specimen Nares - Not specified Performing Organization Address [facility]/Zipcode Phone Number [address] [place] [address] PATHOLOGY AND GENOMIC MEDICINE * XR Foot [...] articulations 5. Small plantar aspect calcaneal spur [id number] Procedure Note Interface, Radiology Results Incoming - 04/03/2018 1:27 [...] articulations 5. Small plantar aspect calcaneal spur [id number] Performing Organization Address City/State/Zipcode Phone Number [facility] [address] [place] [address] * XR Chest 2 Vw (03/06/2018 2:05 PM CDT) Only the most recent of 2 results within the time period is included. Narrative Performed At EXAMINATION:XR CHEST 2 VW [facility] CLINICAL HISTORY:Z01.818 Encounter for other preprocedural examination, PREOP COMPARISON:January 18, 2018 FINDINGS: The heart size appears normal. The mediastinum is unremarkable. The lungs are clear. IMPRESSION: No acute finding is visualized [id number] Procedure Note Hm Interface, Radiology Results Incoming - 03/06/2018 2:23 PM CDT EXAMINATION: XR CHEST 2 VW CLINICAL HISTORY: Z01.818 Encounter for other preprocedural examination, PREOP COMPARISON: January 18, 2018 FINDINGS: The heart size appears normal. The mediastinum is unremarkable. The lungs are clear. IMPRESSION: No acute finding is visualized [id number] Performing Organization Address City/State/Zipcode Phone Number [facility] [address] [place] [address] * Us carotid duplex (01/18/2018 1:30 PM [...] Address City/State/Zipcode Phone Number [facility] [address] [place] [address] * Echocardiogram complete w contrast and 3D [...] LV EF,BP 67.43 % [facility] Shahbaz Elgin,d A2C 7.04 cm [facility] Shahbaz Elgin,d A4C 7.11 cm [facility] Shahbaz [place],s A2C 5.88 cm [facility] Shahbaz [place],s A4C 5.12 cm [facility] LV,s 2.78 [...] [facility] AoV area i VTI BSA Rapides 1.08 cm2/m2 [facility] LV SI MOD BP BSA [place] 23.28 ml/m2 [facility] LV Vol Index s bpmod BSA 34.52 ml/m2 [facility] Rapides PV Vmn 11.24 m/s [facility] MR [...] effusion Performing Organization Address City/State/Zipcode Phone Number [facility] [address] [place] [address] * Cardio IQ(R) advanced lipid panel and inflammation panel (01/12/2018 8:16 AM CDT) Cholesterol, total 237 (H) <200 mg/dL [facility] HDL cholesterol 83 >50 mg/dL [facility] Triglycerides 182 (H) <150 mg/dL [facility] LDL cholesterol 124 (H) <100 mg/dL [facility] calculated Comment: [facility]ST[facility] Desirable range <100 mg/dL for SJC primary prevention; <70 mg/dL for patients with CHD or diabetic patients with > or=2 CHD risk factors. LDL-C is now calculated using the Skip calculation, which is a validated novel method providing better accuracy than the Friedewald equation in the estimation of LDL-C. Alden SS et al. LILY. 2013;310(55): 6203-4727 For additional information, please refer to http://education.Variab.ly.VectorMAX/faq/ZZY753 (This link is being provided for informational/educational purposes only.) Cholesterol/HDL ratio 2.9 <5.0 calc [facility] Non-HDL cholesterol 154 (H) <130 mg/dL (calc) [facility] Comment: [facility] For patients with diabetes [facility] plus 1 major ASCVD risk factor, treating to a non-HDL-C goal of <100 mg/dL (LDL-C of <70 mg/dL) is considered a therapeutic option. LDL particle number 1,293 732 - 2,035 nmol/L [facility] Comment: [facility] Risk: Optimal <1138; Moderate [facility] 3093-6778; High >1409 LDL small 247 75 - 452 nmol/L [facility] Comment: [facility] Risk: Optimal <142; Moderate S[facility] 142-219; High >219 LDL medium 288 122 - 498 nmol/L [facility] Comment: [facility] Risk: Optimal <215; Moderate S[facility] 215-301; High >301 HDL large 7,104 3,966 - 11,938 nmol/L [facility] Comment: [facility] Risk: Optimal >6729; Moderate SJC 3130-9739; High <5353 LDL density pattern B (A) A Pattern [facility] Comment: [facility] Risk: Optimal Pattern A; High S[facility] Pattern B LDL peak size 215.0 (L) > ZV=378.4 Angstrom [facility] Comment: [facility] Risk: Optimal >222.9; Moderate S[facility] 222.9-217.4; High <217.4 Adult cardiovascular event risk category cut points (optimal, moderate, high) are based on adult [place] reference population. Association between lipoprotein subfractions and cardiovascular events is based on Miguel et al. ATVB. 2009;29:1975. This test was developed and its analytical performance characteristics have been determined by [facility]. It has not been cleared or approved by FDA. This assay has been validated pursuant to the CLIA regulations and is used for clinical purposes. Apolipoprotein B 105 (H) 49 - 103 mg/dL [facility] Comment: [facility] Risk: Optimal < 80 mg/dL; S[facility] Moderate 80-119 mg/dL; High > or= 120 mg/dL Cardiovascular event risk category cut points (optimal, moderate, high) are based on National Lipid Association recommendations - Joe et al. J Clin Lipidol. 2011;5:338 Lipoprotein (a) 164 (H) <75 nmol/L [facility] Comment: [facility] Risk: Optimal < 75 nmol/L; SJC Moderate 75-125 nmol/L; High > 125 nmol/L Cardiovascular event risk category cut points (optimal, moderate, high) are based on Marcovina et al. Clin Chem. 2003;49:1785 and Nordestgaard et al. Heart J. 2010;31:2844 (results of meta-analysis and expert panel recommendations). CRP, high sensitivity 7.2 (H) mg/L [facility] Comment: [facility] For Ages > 17 Years: [facility] hs-CRP mg/L Risk According to AHA/CDC Guidelines [...] (H) 50 - 133 nmol/min/mL [facility] Comment: [facility] Risk: Optimal <=123 SJ nmol/min/mL; High >123 nmol/min/mL. The Lp-PLA2 Activity [...] analytical performance characteristics have been determined by [facility]. It has not been cleared or approved by FDA. This assay has been validated pursuant to the CLIA regulations and is used for clinical purposes. Narrative Performed At FASTING:YES ScreenHits FASTING: YES Resulting Agency Comment Performing Organization Information: Site ID: [id number] Name: [facility], Address: [address] [place] [id number] Director: Liz Bueno MD,PhD,BRENNAN Performing Organization Address City/[facility]/Zipcode Phone Number [employer] ([facility]) [address] [place] [address] [facility] [address] * Homocystine, plasma (01/12/2018 8:16 AM CDT) Homocysteine 12.1 (H) <10.4 umol/L [facility] Comment: [facility] Homocysteine is increased by II functional deficiency of folate or vitamin B12.Testing for methylmalonic acid differentiates between these deficiencies.Other causes of increased homocysteine include renal failure, folate antagonists such as methotrexate and phenytoin, and exposure to nitrous oxide. Specimen Blood Narrative Performed At FASTING:YES ScreenHits FASTING: YES Resulting Agency Comment Performing Organization Information: Site ID: [id number] Name: [facility] Address: [address] [facility] [place] [address] Director: Dr. Alphonse Bain Performing Organization Address City/[facility]/Zipcode Phone Number [id number] [place] [address] II * Vitamin B12 level (01/12/2018 8:16 AM CDT) Vitamin B12 1,460 (H) 200 - 1,100 pg/mL [facility] FORK Specimen Blood Narrative Performed At FASTING:YES [facility] FASTING: YES Resulting Agency Comment Performing Organization Information: Site ID: [id number] Name: [facility] Address: [address] [place] [id number] Director: Janiya Dias Performing Organization Address City/[facility] Phone Number [email or web address] FORK [address] [place] [address] * XR Knee 4+ Vw Left (12/30/2017 2:15 PM CDT) Narrative Performed At [facility] findings:Severe medial oa. Impression:Severe medial OA. Performing Organization Address [facility] Phone Number [facility] [address] [place] [address] * Large Joint Arthrocentesis (12/06/2017 1:15 PM CDT) Narrative Performed At Teodoro Dillard MD 12/06/20171:25 PM Large Joint Arthrocentesis Consent given by: patient Site marked: site marked Timeout: Immediately prior to procedure a time out was called to verify the correct patient, procedure, equipment, application support and site/side marked as required Supporting Documentation [...] to verify the correct patient, procedure, equipment, application support and site/side marked as required Supporting Documentation [...] to verify the correct patient, procedure, equipment, application support and site/side marked as required Supporting Documentation [...] Surgical clara in the right upper quadrant. [id number] Procedure Note Hm Interface, Radiology Results Incoming [...] Surgical clara in the right upper quadrant. [id number] Performing Organization Address City/State/Zipcode Phone Number [facility] [address] [place] [address] * URINALYSIS, COMPLETE, WITH REFLEX TO CULTURE (10/26/2017 3:09 PM CDT) Color, UA YELLOW YELLOW [facility] FORK Appearance CLEAR CLEAR [facility]K Specific gravity, urine 1.015 1.001 - 1.035 [facility] pH, urine < OR=5.0 5.0 - 8.0 [facility] Glucose, urine NEGATIVE NEGATIVE [facility] Bilirubin, UA NEGATIVE NEGATIVE [facility] Ketones, UA NEGATIVE NEGATIVE [facility] Occult blood, urine NEGATIVE NEGATIVE [facility] Protein, UA NEGATIVE NEGATIVE [facility] Nitrite, UA NEGATIVE NEGATIVE [facility] Leukocyte esterase, UA TRACE (A) NEGATIVE [facility] WBC, UA 0-5 < OR=5 /HPF [facility] RBC, UA 0-2 < OR=2 /HPF [facility] Squamous epithelial 0-5 < OR=5 /HPF [facility] cells, UA FORK Bacteria, UA FEW (A) NONE SEEN /HPF [facility] Calcium oxalate crystals, FEW NONE OR FEW /HPF [facility] UA FORK Hyaline casts, UA NONE SEEN NONE SEEN /LPF [facility] Reflex CULTURE INDICATED - RESULTS TO clypd FOLLOW FORK Resulting Agency Comment Performing Organization Information: Site ID: [id number] Name: [facility] Address: [address] [place] [address], [place] [address] Director: Janiya Dias MD Performing Organization Address City/State/Zipcode Phone Number [facility] [place] [id number] * Measure blood pressure (10/26/2017) Narrative Performed At after 08/19/2017 Insurance Payer Benefit Subscriber ID Type Phone Address Plan / Group [employer] TEXAN[employer]US xxxxxxxxx O [facility] Advance Directives Patient has advance care planning documents, and code status on file. For more i nformation, please contact: Richard Arteaga [address] [place] [address] Date Inactivated Comments Code Status Date Activated 04/14/2018 11:40 PM Full Code 04/11/2018 5:43 PM Code Status decision reached by: Patient
[2018-08-20] MEDS ORDERED: METHYLPREDNISOLONE SOD SUCC 125 MG/2ML VIAL IV ONE (11:45)
[2018-08-20] MEDS ORDERED: ALBUTEROL/IPRATROPIUM 3 ML NEB NEB ONE ×2 (11:45→14:30)
--- NOTE | 2018-08-20 12:28 | Diagnostic Imaging Report ---
EXAMINATION: PA and lateral views of the chest. COMPARISON: Chest 2 views 09/08/2015 CLINICAL HISTORY: Fever, wheezing, recent travel, rule out pneumonia DISCUSSION: Lines/tubes: None. Lungs: The lungs are well inflated. Stable 4 mm calcified granuloma in the right upper lobe. There is no evidence of pneumonia or pulmonary edema. Pleura: There is no pleural effusion or pneumothorax. Heart and mediastinum: Cardiomediastinal silhouette is unremarkable. Pulmonary vasculature is normal. Bones and soft tissues: No acute bony abnormalities. Partially visualized fusion hardware in the lower cervical/upper thoracic spine. Degenerative changes in the thoracic spine. IMPRESSION: No acute cardiopulmonary abnormalities. Signed by: Dr. Abraham Real M.D. on 08/20/2018 12:25 PM
[2018-08-29] MEDS ORDERED: PANTOPRAZOLE SO40 MG PO (10:29)
[2018-08-29] MEDS ORDERED: MONTELUKAST SOD10 MG PO (10:31)
[2018-08-29] MEDS ORDERED: FENOFIBRATE145 MG PO (10:31)
[2018-08-29] MEDS ORDERED: BUPROPION XL150 MG PO (10:31)
[2018-08-29] MEDS ORDERED: CRESTOR10 MG PO (10:32)
[2018-08-29] MEDS ORDERED: SENNA LAX8.6 MG PO (10:35)
[2018-08-29] MEDS ORDERED: VIT B12 PO (10:35)
[2018-08-29] MEDS ORDERED: NORCO 10-325 T1 EACH PO (10:36)
== END 2018-08-20 16:05 | disposition home or self-care (01) ==
LOC: ER 11:15
DX: R05 Cough (principal); J02.9 Acute pharyngitis, unspecified
CPT/HCPCS: 71046; 87400; 94640; 99284; J2930

== ENCOUNTER → 2018-08-31 | Day surgery (SDC) | payer OTHER ==
[2018-08-29 10:32] LABS: BASOPHILS # (AUTO) 0.1 (0.0-0.1); BASOPHILS % 0.9 % (0.0-1.0); EOSINOPHILS # (AUTO) 0.3 (0.0-0.4); EOSINOPHILS % 3.3 % (0.0-6.0); HEMATOCRIT 41.5 % (34.2-44.1); HEMOGLOBIN 13.4 g/dL (12.0-16.0); LYMPHOCYTES # (AUTO) 2.1 (1.0-3.2); LYMPHOCYTES % 22.6 % (18.0-39.1); MEAN CORPUSCULAR HEMOGLOBIN 29.6 pg (28-32); MEAN CORPUSCULAR HGB CONC 32.3 g/dL (31-35); MEAN CORPUSCULAR VOLUME 91.8 fL (81-99); MONOCYTES # (AUTO) 0.7 (0.2-0.8); NEUTROPHILS # (AUTO) 5.9 (2.1-6.9); NEUTROPHILS % 64.8 % (38.7-80.0); PLATELET COUNT 231 x10e3/uL (140-360); RED BLOOD COUNT 4.52 x10e6/uL (3.6-5.1); RED CELL DISTRIBUTION WIDTH 13.6 % (11.7-14.4)
[~2018-08-31] MED LIST changes: +CHONDR SU A NA/HYALUR SOD 1 EACH KIT IO ONE; +CRESTOR10 MG PO; +CYCLOPENTOLATE HCL 2% OPTH SOLN 2 ML BTL OP ONE; +EPINEPHRINE HCL 1:1000 1ML 1 MG/ML AMP ONE; +FENOFIBRATE145 MG PO; +FENTANYL CITRATE/PF 100MCG/2 ML INJ ONE; +GATIFLOXACIN(OPTH) 5 ML LIQD ONE; +LIDOCAINE 2% /EPINEPHRINE 20 ML SDV INJ ONE; +LIDOCAINE HCL-PF 4% 40 MG/1 ML 5ML AMP ONE; +MIDAZOLAM HCL 2 MG/2 ML VIAL ONE; +NORCO 10-325 T1 EACH PO; +PHENYLEPHRINE HCL 2 ML DROPS ONE; +PILOCARPINE HCL(OPTH) 15 ML LIQD ONE; +POVIDONE IODINE 5% (OPTH) 30 ML BTL ONE; +PROPOFOL IV EMULSION 10 MG/ML 20 ML VIAL ONE; +SENNA LAX8.6 MG PO; +TOBRAMYCIN/DEXAMETHASONE(OPTH) 3.5 GM TUBE ONE; +VIT B12 PO
--- OUTSIDE RECORDS SUMMARY | 2018-08-31 06:09 | XMS REPORT | Clinical Summary ---
Author Author [facility] Organization [facility] Address Unknown Phone Unavailable Care Team Providers Care Layout Designer Name Role Phone Darshan Rodriges MD PCP [...] COAGULANS, by mouth ORAL) daily. Active omega 6-dwk-wvz-fish oil Take 1 tablet 0 (FISH OIL) 360-1,200 mg by mouth 2 capsule,delayed (two) times a release(DR/EC) day. Active therapeutic multivitamin Take 1 tablet 0 (THERAGRAN) tablet by mouth daily. Active pantoprazole (PROTONIX) Take 1 tablet 90 [...] ointmentIndications: (two) times a Angular cheilitis day. 09/23/2018 Active zolpidem (AMBIEN) 5 MG Take 1 tablet 30 tablet 0 tablet (5 mg total) 9 by mouth nightly as needed for sleep for up to 30 days. 09/06/2017 Discontinued traMADol (ULTRAM) 50 mg Take [...] 1,000 0 tablet mcg by mouth daily. 08/22/2018 ergocalciferol (VITAMIN Take 1 12 capsule 3 D2) 50,000 unit capsule capsule 8 (50,000 Units total) by mouth once a week. 09/19/2017 Discontinued traMADol (ULTRAM) 50 mg Take [...] (two) times a day for 7 days. 08/22/2018 Discontinued zolpidem (AMBIEN) 5 MG Take 1 tablet [...] Encounters Care Team Description Date Type Specialty Rebecca Tyler MD 08/28/2018 Refill Family Medicine Surjit Felton Jr., MD 08/22/2018 Refill Orthopedic Surgery Darshan Rodriges MD 08/22/2018 Refill Internal Medicine Surjit Felton Jr., MD History of total left knee replacement (Primary Dx) 07/12/2018 Office Visit Orthopedic Darshan Prescott MD Vitamin D deficiency (Primary Dx); Other [...] MD 03/06/2018 Hospital Radiology Encounter Keith Gonzalez, WILL 03/06/2018 Telephone Internal Medicine Darshan Rodriges [...] of left knee 11/29/2017 Clinical Sports Medicine Teodoro Munson MD Primary osteoarthritis of left knee (Primary Dx) 11/22/2017 Clinical Sports Medicine Support Teodoro Dillard MD 11/21/2017 Telephone Orthopedic Surgery Teodoro Dillard MD Lumbar strain, initial encounter (Primary Dx); Primary osteoarthritis of left knee 11/17/2017 Office Visit Sports Medicine Tahir Nowak MD 11/05/2017 Documentation Gastroenterology Darshan Rodriges MD Lumbar radiculopathy 10/31/2017 Hospital Radiology Encounter Janina Kat MA 10/31/2017 Telephone Gastroenterology Darshan Rodriges MD 10/31/2017 Orders Only Internal Medicine Darshan [...] Darshan Rodriges MD 08/30/2017 Telephone Internal Medicine after 08/30/2017 Family History Medical History Relation Name Comments [...] Taken Vital Sign Reading 07/12/2018 2:16 PM [employer] Blood Pressure 133/68 07/12/2018 2:16 PM [employer] Pulse 82 04/14/2018 4:07 PM CDT Temperature 36.8 C (98.2 F) 06/20/2018 11:54 AM [employer] Respiratory Rate 20 06/20/2018 11:54 AM [employer] Oxygen Saturation 98% - Inhaled Oxygen - Concentration 07/12/2018 2:16 PM [employer] Weight 77.1 kg (170 lb) 07/12/2018 2:16 PM [employer] Height 172.7 cm (5' 8") 07/12/2018 2:16 PM [employer] Body Mass Index 25.85 Plan of Treatment Care Team Description Date Type Specialty Surjit Felton Jr., MD 2019 [facility] [address] [place] [address] [phone] 09/13/2018 Office Visit Orthopedic Surgery Health Maintenance Due [...] Lot Implanted Type Area Manufactur er 01/01/2028 [id number] / / [id number] Journey Ii Bcs Femoral Oxin Lt Sz 5 IPM Left: Knee CHARLES & - [id number] IMPLANT NEPHEW Implanted: Qty: 1 on 04/11/2018 by DEVICES Surjit Trinidad Jr., MD 01/18/2028 [id number] / / [id number] Journey Ii Bcs Xlpe Art Insert Sz IPM Left: Knee CHARLES & 3-4 Lt 9mm - [id number] IMPLANT NEPHEW Implanted: Qty: 1 on 04/11/2018 by DEVICES Surjit Trinidad Jr., MD CS 05/01/2027 [id number] / / [id number] Patella Knee Rsrfcng 32mm Std Knee Joint Left: Knee CHARLES AND Journey - [id number] Implants NEPHEW Implanted: Qty: 1 on 04/11/2018 by ORTHOPEDIC Surjit Felton Jr., MD S 02/12/2028 [id number] / / [id number] Baseplate Tib Journey N-Por Lt Sz 3 Knee Joint Left: Knee CHARLES AND - [id number] Implants NEPHEW Implanted: Qty: 1 on 04/11/2018 by ORTHOPEDIC Surjit Felton Jr., MD S 07/07/2019 [id number] / / [id number] Cement Bone Gm Hiviscocty 40gr Surgical Left: Knee DEPUY Smartmix - [id number] Bone ORTHO-KNEE Implanted: Qty: 2 on 04/11/2018 by Surjit San Jr., MD Procedures Comments Procedure Name Priority Date/Time Associated Diagnosis VITAMIN D 25 HYDROXY Routine 06/20/2018 Vitamin D deficiency LEVEL 12:28 PM [employer] Abnormal blood chemistry COMPREHENSIVE METABOLIC Routine 06/20/2018 Abnormal blood chemistry PANEL 12:28 PM [employer] CRP HIGH SENSITIVITY Routine 06/20/2018 Abnormal blood chemistry 12:28 PM [employer] FERRITIN LEVEL Routine 06/20/2018 Other iron deficiency 12:28 PM [employer] anemia Abnormal blood chemistry CBC WITH PLATELET AND Routine 06/20/2018 Other iron deficiency DIFFERENTIAL 12:28 PM [employer] anemia Abnormal blood chemistry XR KNEE 1 [...] PATHOLOGY Routine 04/11/2018 REQUEST 1:19 PM CDT IA AN PERIPHERAL BLOCK Routine 04/11/2018 PROCEDURE FOR [...] comfortabl e and patient tolerated procedure well IA AN PERIPHERAL BLOCK Routine 04/11/2018 POST-OP PAIN 12:39 PM CDT Procedure Note - Gagan Cooper MD - 04/11/2018 12:39 PM CDT Peripheral Block Performed by: GAGAN COOPER Authorized by: GAGAN COOPER Patient Location: Holding area Reason for Block: at surgeon's request, post-op pain management , procedure for pain Staff: Bonilla portillot: GAGAN COOPER Performed by: Bonilla cardenas Preprocedu [...] AND SCREEN Routine 03/17/2018 6:50 AM CDT IA AN PERIPHERAL BLOCK Routine 03/13/2018 POST-OP PAIN 7:02 AM CDT Procedure Note - Yvette Muro MD - 03/13/2018 7:02 AM CDT Peripheral Block Performed by: YVETTE MURO Authorized by: YVETTE MURO Patient Location: Holding area Start Time: 03/13/2018 7:04 AM End Time: 03/13/2018 7:10 AM Reason for Block: post-op pain management Staff: Bonilla portillot: YVETTE MURO Performed by: Anesthesio ronald Preprocedu re: patient identified , IV checked, [...] 1:14 PM CDT Essential hypertension COLOR DOPPLER (50199) Mixed hyperlipidemia Former tobacco use XR CHEST [...] knee pain, 2:15 PM CDT unspecified chronicity IA ARTHROCENTESIS Routine 12/06/2017 Primary osteoarthritis of ASPIR&/INJ MAJOR JT/BURSA 1:15 PM CDT left knee W/O US IA ARTHROCENTESIS Routine 11/29/2017 Primary osteoarthritis of ASPIR&/INJ MAJOR JT/BURSA 1:15 PM CDT left knee W/O US IA ARTHROCENTESIS Routine 11/22/2017 Primary osteoarthritis of ASPIR&/INJ MAJOR JT/BURSA 1:15 PM CDT left knee W/O US XR LUMBAR SPINE COMPLETE Routine 10/31/2017 Lumbar radiculopathy 4+ VW 12:37 PM CDT XR LUMBAR SPINE COMPLETE Routine 10/31/2017 4+ VW URINALYSIS, COMPLETE, Routine 10/26/2017 Essential hypertension WITH REFLEX TO CULTURE 3:09 PM CDT URINE CULTURE Routine 10/26/2017 3:09 PM CDT MEASURE BLOOD PRESSURE Routine 10/26/2017 after 08/30/2017 Results * Vitamin D 25 hydroxy level (06/20/2018 12:28 PM [employer]) Only the most recent of 2 results within the time period is included. Vitamin D, 25-hydroxy 40 30 - 100 ng/mL [facility] Comment: [facility] Vitamin D Status 25-OH Vitamin D: Deficiency: <20 ng/mL Insufficiency: 20 - 29 ng/mL Optimal: > or=30 ng/mL For 25-OH Vitamin D testing on patients on D2-supplementation and patients for whom quantitation of D2 and D3 fractions is required, the QuestAssureD(TM) 25-OH VIT D, (D2,D3), LC/MS/MS is recommended: order code 00234 (patients >2yrs). For more information on this test, go to: http://education.Vocab.Sophono/faq/QSC879 (This link is being provided for informational/educational purposes only.) Specimen Blood Narrative Performed At FASTING:UNKNOWN [facility] FASTING: UNKNOWN Resulting Agency Comment Performing Organization Information: Site ID: [id number] Name: [facility] Address: [address] [place] [id number] Director: Janiya Dias Performing Organization Address City/State/Zipcode Phone Number [employer] [place] [phone] * CBC with platelet and differential (06/20/2018 12:28 PM [employer]) Only the most recent of 6 results within the time period is included. WBC 8.3 3.8 - 10.8 Thousand/uL [facility] [place] RBC 4.21 3.80 - 5.10 Million/uL [facility] HGB 12.2 11.7 - 15.5 g/dL [employer] [facility] HCT 37.4 35.0 - 45.0 % [facility] [place] MCV 88.8 80.0 - 100.0 fL [facility] [place] MCH 29.0 27.0 - 33.0 pg [facility] [place] MCHC 32.6 32.0 - 36.0 g/dL [facility] [place] RDW 13.1 11.0 - 15.0 % [facility] [place] Platelet count 217 140 - 400 Thousand/uL [facility] [place] MPV 12.2 7.5 - 12.5 fL [facility] [place] Neutrophils, absolute 5,876 1,500 - 7,800 cells/uL [facility] [place] Lymphocytes, absolute 1,602 850 - 3,900 cells/uL [facility] [place] Monocytes, absolute 589 200 - 950 cells/uL [facility] [place] Eosinophils, absolute 141 15 - 500 cells/uL [facility] [place] Basophils, absolute 91 0 - 200 cells/uL [facility] [place] Neutrophils 70.8 % [facility] [place] Lymphocytes 19.3 % [facility] [place] Monocytes 7.1 % [facility] [place] Eosinophils 1.7 % [facility] [place] Basophils + RC 1.1 % [facility] [place] Specimen Blood Narrative Performed At FASTING:UNKNOWN [facility] FASTING: UNKNOWN Resulting Agency Comment Performing Organization Information: Site ID: [id number] Name: [facility] Address: [address] [place] [id number] Director: Janiya Dias Performing Organization Address City/State/Zipcode Phone Number [place] [phone] * CRP high sensitivity (06/20/2018 12:28 PM [employer]) CRP, high sensitivity 2.9 mg/L [facility] Comment: [...] Performing Organization Information: Site ID: [id number] Name: [facility] Address: [address] [place] [address] Director: Dr. Alphonse Bain Performing Organization Address City/State/[facility] Phone Number GAYLE [employer] [facility] [address] [place] [address] II * Ferritin level (06/20/2018 12:28 PM [employer]) Ferritin level 51 20 - 288 ng/mL [facility] [place] Specimen Blood Narrative Performed At FASTING:UNKNOWN [facility] FASTING: UNKNOWN Resulting Agency Comment Performing Organization Information: Site ID: [id number] Name: [facility] Address: [address] [place] [address] Director: Janiya Dias Performing Organization Address City/[facility] Hospitalcode Phone Number [employer] [place] [address] [place] [address] * Comprehensive metabolic panel (06/20/2018 12:28 PM [employer]) Only the most recent of 4 results within the time period is included. Glucose 87 65 - 99 mg/dL [facility] Comment: [facility] Fasting reference interval BUN, whole blood 25 7 - 25 mg/dL [facility] [place] Creatinine 0.98 (H) 0.60 - 0.93 mg/dL [facility] Comment: [place] For patients >49 years of age, the reference limit for Creatinine is approximately 13% higher for people identified as -Swedish. EGFR Non-Afr. Swedish 58 (L) > OR=60 mL/min/1.73m2 [facility] [place] EGFR 67 > OR=60 mL/min/1.73m2 [facility] [place] BUN/creatinine ratio 26 (H) 6 - 22 (calc) [facility] [place] Sodium 141 135 - 146 mmol/L [facility] Potassium 4.3 3.5 - 5.3 mmol/L [facility] [place] Chloride 103 98 - 110 mmol/L [facility] [place] CO2 31 20 - 32 mmol/L [facility] [place] Calcium 10.6 (H) 8.6 - 10.4 mg/dL [facility] [place] Protein 7.0 6.1 - 8.1 g/dL [facility] [place] Albumin, S 4.4 3.6 - 5.1 g/dL [facility] [place] Globulin, total 2.6 1.9 - 3.7 g/dL (calc) [facility] Albumin/globulin ratio 1.7 1.0 - 2.5 (calc) [facility] Total bilirubin 0.5 0.2 - 1.2 mg/dL [facility] Alkaline phosphatase 50 33 - 130 U/L [facility] AST 18 10 - 35 U/L [facility] ALT 12 6 - 29 U/L [facility] Specimen Blood Narrative Performed At FASTING:UNKNOWN [facility] FASTING: UNKNOWN Resulting Agency Comment Performing Organization Information: Site ID: [id number] Name: [facility] Address: [address] [place] [phone] Director: Janiya Dias Performing Organization Address City/[facility] Hospitalcode Phone Number [facility] [employer] [facility] [address] [place], [place] [phone] * XR Knee 1 Or 2 Vw Left (05/31/2018 11:23 AM CDT) Only the most recent of 2 results within the time period is included. Narrative Performed At [facility] Clinical: knee replacement Comparison: 04/11/18 Impression : s/p TKA without acute complication. Performing Organization Address City/[facility] Hospitalcoor Phone Number [facility] [address] [place] [address] * US Breast Complete Left (05/30/2018 3:02 [...] Performing Organization Address City/State/Zipcode Phone Number [facility] [address] [place] [address] * Mammo Breast Diagnostic Tomosynthesis Left (05/30/2018 [...] Performing Organization Address City/State/Zipcode Phone Number [facility] [address] [place] [address] * Mammo Breast Screen Tomosynthesis Bilateral (05/19/2018 11:32 AM CDT) Narrative Performed At PROCEDURE:MAMMO BREAST SCREEN TOMOSYNTHESIS [id number]/12/2018 11:18 AM [facility] This patient's mammogram was interpreted with the [...] indicated. This facility is accredited by [employer] for Mammography. A negative x-ray report should not delay biopsy if a dominant or clinically suspicious mass is present. Not all cancers are identified by x-ray. [id number] The results of this exam have been sent to the patient. Performing Organization Address City/State/Zipcode Phone Number [facility] [address] [place] [address] * Estimated GFR (04/13/2018 4:15 AM CDT) Only the most recent of 4 results within the time period is included. GFR Non Af Amer 62 mL/min/1.[address] [facility] DEPARTMENT OF PATHOLOGY AND GENOMIC MEDICINE GFR Af Amer 75 mL/min/1.[address] [facility] DEPARTMENT OF Comment: PATHOLOGY AND [...] specimen Performing Organization Address City/State/Zipcode Phone Number [place] [address] [place] [address] PATHOLOGY AND [employer] MEDICINE * Basic metabolic panel (04/13/2018 4:15 AM CDT) Only the most recent of 2 results within the time period is included. Sodium 140 135 - 148 mEq/L [facility] DEPARTMENT OF PATHOLOGY AND GENOMIC MEDICINE Potassium 3.9 3.5 - 5.0 mEq/L [facility] DEPARTMENT OF PATHOLOGY AND GENOMIC MEDICINE Chloride 101 98 - 112 mEq/L [facility] DEPARTMENT OF PATHOLOGY AND GENOMIC MEDICINE CO2 30 24 - 31 mEq/L [facility] DEPARTMENT OF PATHOLOGY AND GENOMIC MEDICINE Anion gap 9@ANIO 7 - 15 mEq/L [facility] DEPARTMENT OF PATHOLOGY AND GENOMIC MEDICINE BUN 20 8 - 23 mg/dL [facility] DEPARTMENT OF PATHOLOGY AND GENOMIC MEDICINE Creatinine 0.9 0.5 - 0.9 mg/dL [facility] DEPARTMENT OF PATHOLOGY AND GENOMIC MEDICINE Glucose 117 (H) 65 - 99 mg/dL [facility] DEPARTMENT OF PATHOLOGY AND GENOMIC MEDICINE Calcium 9.5 8.8 - 10.2 mg/dL [facility] DEPARTMENT OF PATHOLOGY AND GENOMIC MEDICINE Specimen Plasma specimen Performing Organization Address [facility] Hospitalcode Phone Number [address] [place] [address] PATHOLOGY AND GENOMIC MEDICINE * Surgical pathology request (04/11/2018 1:19 PM CDT) [facility] DEPARTMENT OF PATHOLOGY AND GENOMIC MEDICINE Surgical pathology report See link below for PDF Lab [facility] DEPARTMENT OF Report PATHOLOGY AND GENOMIC MEDICINE Result status This is Final Report for [facility] [id number] PATHOLOGY AND GENOMIC MEDICINE Performing Organization Address [facility] Hospitalcoor Phone Number [address] [place] [address] PATHOLOGY AND [facility] * Urinalysis screen and microscopy, with reflex to culture (04/11/2018 10:22 AM CDT) Only the most recent of 3 results within the time period is included. Specimen site Clean catch [facility] DEPARTMENT OF PATHOLOGY AND GENOMIC MEDICINE Color, UA Yellow [facility] DEPARTMENT OF PATHOLOGY AND GENOMIC MEDICINE Appearance, UA Slightly-Cloudy [facility] DEPARTMENT OF PATHOLOGY AND GENOMIC MEDICINE Specific gravity, UA 1.019 1.001 - 1.[address] [facility] DEPARTMENT OF PATHOLOGY AND GENOMIC MEDICINE pH, UA 5.0 5.0 - 8.[address] [facility] DEPARTMENT OF PATHOLOGY AND GENOMIC MEDICINE Protein, UA Negative Negative [facility] DEPARTMENT OF PATHOLOGY AND GENOMIC MEDICINE Glucose, UA Negative Negative [facility] DEPARTMENT OF PATHOLOGY AND GENOMIC MEDICINE Ketones, UA Trace (A) Negative [facility] DEPARTMENT OF PATHOLOGY AND GENOMIC MEDICINE Bilirubin, UA Negative Negative [facility] DEPARTMENT OF PATHOLOGY AND GENOMIC MEDICINE Blood, UA Negative Negative [facility] DEPARTMENT OF PATHOLOGY AND GENOMIC MEDICINE Nitrite, UA Negative Negative [facility] DEPARTMENT OF PATHOLOGY AND GENOMIC MEDICINE Urobilinogen, UA Negative <2.[address] [facility] DEPARTMENT OF PATHOLOGY AND GENOMIC MEDICINE Leukocyte esterase, UA Negative Negative [facility] DEPARTMENT OF PATHOLOGY AND GENOMIC MEDICINE Epithelial cells, UA Few /HPF [facility] DEPARTMENT OF PATHOLOGY AND GENOMIC MEDICINE Round epithelial cells, Few 0 - 1 /HPF [facility] DEPARTMENT OF UA PATHOLOGY AND GENOMIC MEDICINE WBC, UA 0-5 0 - 4 /HPF [facility] DEPARTMENT OF PATHOLOGY AND GENOMIC MEDICINE RBC, UA 0-5 0 - 5 /HPF [facility] DEPARTMENT OF PATHOLOGY AND GENOMIC MEDICINE Bacteria, UA None seen None seen [facility] DEPARTMENT OF PATHOLOGY AND GENOMIC MEDICINE Yeast, UA None seen [facility] DEPARTMENT OF PATHOLOGY AND GENOMIC MEDICINE Yeast with pseudohyphae, None seen [facility] DEPARTMENT UA PATHOLOGY AND GENOMIC MEDICINE Calcium oxalate crystals, Many [facility] DEPARTMENT [facility] PATHOLOGY AND GENOMIC MEDICINE Specimen Urine Performing Organization Address City/[facility]oor Phone Number [address] [place] [address] PATHOLOGY AND GENOMIC MEDICINE * Urine culture (04/11/2018 10:22 AM CDT) Only the most recent of 4 results within the time period is included. Urine culture SEE COMMENTComment: [facility] DEPARTMENT OF Bacteriuria screen negative. PATHOLOGY AND GENOMIC MEDICINE Specimen Urine Performing Organization Address [facility] Phone Number [address] [place] [phone] PATHOLOGY AND GENOMIC MEDICINE * ECG 12 lead (04/07/2018 3:20 PM CDT) Only the most recent of 4 results within the time period is included. Ventricular rate 65 [facility] Atrial rate 68 [facility] IA interval 172 [facility] QRSD interval 90 [facility] QT interval 396 [facility] QTC interval 411 [facility] P axis 1 79 [facility] QRS axis 1 66 [facility] T wave axis 77 [facility] EKG impression Normal sinus rhythm with sinus [facility] arrhythmia-Normal ECG-In automated comparison with ECG of 06-MAR-2018 13:09,-No significant change was found- Performing Organization Address City/[facility]code Phone Number [facility] [address] [place] [address] * Partial thromboplastin time, activated (04/07/2018 3:15 PM CDT) Only the most recent of 3 results within the time period is included. PTT 28.1 23.0 - 36.[address] [facility] DEPARTMENT OF Comment: PATHOLOGY AND PTT therapeutic range for GENOMIC MEDICINE unfractionated heparin is 61.0-112.0 seconds which corresponds to Anti-Xa 0.3-0.7 U/ml. Specimen Blood Performing Organization Address [facility] Phone Number [address] [place] [address] PATHOLOGY AND GENOMIC MEDICINE * Prothrombin time with INR (04/07/2018 3:15 PM CDT) Only the most recent of 3 results within the time period is included. Prothrombin time 12.8 12.0 - 15.[address] [facility] DEPARTMENT OF PATHOLOGY AND GENOMIC MEDICINE INR 1.[address] [facility] DEPARTMENT OF Comment: PATHOLOGY AND The International Normalized [facility] Ratio (INR) is a therapeutic monitoring tool for patients who are stable on oral anticoagulant therapy. An INR of 2.0-3.0 is suggested for deep vein thrombosis/pulmonary embolism. Specimen Blood Performing Organization Address [facility] Number [address] [place] [address] PATHOLOGY AND [employer] MEDICINE * Gram stain (04/07/2018 3:15 PM CDT) Only the most recent of 2 results within the time period is included. Gram stain result No WBC's or organisms seen. [facility] DEPARTMENT OF Comment: PATHOLOGY AND Specimen Information GENOMIC MEDICINE Specimen Source: Urine Specimen Site: Clean catch Specimen Urine Performing Organization Address [facility] Phone Number [facility] DEPARTMENT OF [address] [place] [phone] PATHOLOGY AND GENOMIC MEDICINE * Type and screen (04/07/2018 3:15 PM CDT) Only the most recent of 3 results within the time period is included. ABO grouping A [facility] DEPARTMENT OF PATHOLOGY AND GENOMIC MEDICINE Rh type NEG [facility] DEPARTMENT OF PATHOLOGY AND GENOMIC MEDICINE Antibody screen NEG [facility] DEPARTMENT OF PATHOLOGY AND GENOMIC MEDICINE Specimen Blood Performing Organization Address [facility] Phone Number [address] [place] [address] PATHOLOGY AND GENOMIC MEDICINE * MRSA screen culture (04/07/2018 3:15 PM CDT) Only the most recent of 2 results within the time period is included. MRSA screen culture No Methicillin Resistant [facility] DEPARTMENT OF isolate Staphylococcus aureus PATHOLOGY AND isolated. GENOMIC MEDICINE Comment: Specimen Information Specimen Source: Nares Specimen Site: Not specified Specimen Nares - Not specified Performing Organization Address [facility]/Zipcode Phone Number [facility] DEPARTMENT OF [address] [place] [address] PATHOLOGY AND GENOMIC MEDICINE * XR Foot [...] articulations 5. Small plantar aspect calcaneal spur [id number] Procedure Note Interface, Radiology Results Incoming - [...] articulations 5. Small plantar aspect calcaneal spur [id number] Performing Organization Address City/[facility]/Zipcode Phone Number [facility] [address] [place] [address] * XR Chest 2 Vw (03/06/2018 2:05 PM CDT) Only the most recent of 2 results within the time period is included. Narrative Performed At EXAMINATION:XR CHEST 2 VW [facility] [facility] CLINICAL HISTORY:Z01.818 Encounter for other preprocedural examination, PREOP COMPARISON:January 18, 2018 FINDINGS: The heart size appears normal. The mediastinum is unremarkable. The lungs are clear. IMPRESSION: No acute finding is visualized [id number] Procedure Note Hm Interface, Radiology Results Incoming - 03/06/2018 2:23 PM CDT EXAMINATION: XR CHEST 2 VW CLINICAL HISTORY: Z01.818 Encounter for other preprocedural examination, PREOP COMPARISON: January 18, 2018 FINDINGS: The heart size appears normal. The mediastinum is unremarkable. The lungs are clear. IMPRESSION: No acute finding is visualized [id number] Performing Organization Address City/State/Zipcode Phone Number [facility] [address] [place] [address] * Us carotid duplex (01/18/2018 1:30 PM [...] Address City/State/Zipcode Phone Number [facility] [address] [place] [address] * Echocardiogram complete w contrast and 3D [...] LV EF,BP 67.43 % [facility] [place]baz [place],d A2C 7.04 cm [facility] [place]baz [place],d A4C 7.11 cm [facility] Shahbaz [place],s A2C 5.88 cm [facility] [place],s A4C 5.12 cm [facility] LV,s 2.78 [...] [facility] AoV area i VTI BSA Haresh 1.08 cm2/m2 [facility] LV SI MOD BP BSA [place] 23.28 ml/m2 [facility] LV Vol Index s bpmod BSA 34.52 ml/m2 [facility] [place] PV Vmn 11.24 m/s [facility] MR [...] Performing Organization Address City/State/Zipcode Phone Number [facility] [address] [place] [address] * Cardio IQ(R) advanced lipid panel and inflammation panel (01/12/2018 8:16 AM CDT) Cholesterol, total 237 (H) <200 mg/dL [facility] HDL cholesterol 83 >50 mg/dL [facility] Triglycerides 182 (H) <150 mg/dL [facility] LDL cholesterol 124 (H) <100 mg/dL [facility] calculated Comment: [facility] Desirable range <100 mg/dL for SJC primary prevention; <70 mg/dL for patients with CHD or diabetic patients with > or=2 CHD risk factors. LDL-C is now calculated using the Skip calculation, which is a validated novel method providing better accuracy than the Friedewald equation in the estimation of LDL-C. Alden LARIOS et al. LILY. 2013;310(19): 7420-0085 For additional information, please refer to http://education.JMEA.com/faq/DHH694 (This link is being provided for informational/educational purposes only.) Cholesterol/HDL ratio 2.9 <5.0 calc [facility] Non-HDL cholesterol 154 (H) <130 mg/dL (calc) [facility] Comment: [facility] For patients with diabetes SJC plus 1 major ASCVD risk factor, treating to a non-HDL-C goal of <100 mg/dL (LDL-C of <70 mg/dL) is considered a therapeutic option. LDL particle number 1,293 732 - 2,035 nmol/L [facility] Comment: [facility] Risk: Optimal <1138; Moderate [facility] 1567-6512; High >1409 LDL small 247 75 - 452 nmol/L [facility] Comment: [facility] Risk: Optimal <142; Moderate [facility] 142-219; High >219 LDL medium 288 122 - 498 nmol/L [facility] Comment: [facility] Risk: Optimal <215; Moderate S[facility] 215-301; High >301 HDL large 7,104 3,966 - 11,938 nmol/L [facility] Comment: [facility] Risk: Optimal >6729; Moderate [facility] 5912-3712; High <5353 LDL density pattern B (A) A Pattern [facility] Comment: [facility] Risk: Optimal Pattern A; High [facility] Pattern B LDL peak size 215.0 (L) > DV=356.4 [employer]strom [facility] Comment: [facility] Risk: Optimal >222.9; Moderate [facility] 222.9-217.4; High <217.4 Adult cardiovascular event risk category cut points (optimal, moderate, high) are based on adult [place] reference population. Association between lipoprotein subfractions and cardiovascular events is based on Miguel et al. ATVB. 2009;29:1975. This test was developed and its analytical performance characteristics have been determined by [facility]. It has not been cleared or approved by FDA. This assay has been validated pursuant to the CLIA regulations and is used for clinical purposes. Apolipoprotein B 105 (H) 49 - 103 mg/dL [facility] Comment: [facility] Risk: Optimal < 80 mg/dL; S[facility] Moderate [...] points (optimal, moderate, high) are based on Jaskaranovina et al. Clin Chem. 2003;49:1785 and Nordestgaard et al. Heart J. 2010;31:2844 (results of meta-analysis and expert panel recommendations). CRP, high sensitivity 7.2 (H) mg/L [facility] Comment: [facility] For Ages > 17 Years: [facility] hs-CRP mg/L Risk According to AHA/CDC Guidelines [...] analytical performance characteristics have been determined by [facility]. It has not been cleared or approved by FDA. This assay has been validated pursuant to the CLIA regulations and is used for clinical purposes. Narrative Performed At FASTING:YES [facility] FASTING: YES Resulting Agency Comment Performing Organization Information: Site ID: [id number] Name: [facility], Address: [address] [place] [id number] Director: Liz Bueno MD,PhD,BRENNAN Performing Organization Address City/State/Zipcode Phone Number [facility] [address] [place] [address] [facility] [id number] * Homocystine, plasma (01/12/2018 8:16 AM CDT) Homocysteine 12.1 (H) <10.4 umol/L [facility] Comment: [facility] Homocysteine is increased by II functional deficiency of folate or vitamin B12.Testing for methylmalonic acid differentiates between these deficiencies.Other causes of increased homocysteine include renal failure, folate antagonists such as methotrexate and phenytoin, and exposure to nitrous oxide. Specimen Blood Narrative Performed At FASTING:YES [facility] FASTING: YES Resulting Agency Comment Performing Organization Information: Site ID: [id number] [facility]: [facility] Address: [address] [place] [address] Director: Dr. Alphonse Bain Performing Organization Address [facility] Phone [facility] [address] [place] [address] II * Vitamin B12 level (01/12/2018 8:16 AM CDT) Vitamin B12 1,460 (H) 200 - 1,100 pg/mL [facility] Specimen Blood Narrative Performed At FASTING:YES [facility] FASTING: YES Resulting Agency Comment Performing Organization Information: Site ID: [id number] Name: [facility] Address: [address] [place] [phone] Director: Janiya Dias Performing Organization Address [facility] Phone Number [address] [address] * XR Knee 4+ Vw Left (12/30/2017 2:15 PM CDT) Narrative Performed At [facility] findings:Severe medial oa. Impression:Severe medial OA. Performing Organization Address [facility] Phone Number [facility] [address] [place] [address] * Large Joint Arthrocentesis (12/06/2017 1:15 PM CDT) Narrative Performed At Teodoro Dillard MD 12/06/20171:25 PM Large Joint Arthrocentesis Consent given by: patient Site marked: site marked Timeout: Immediately prior to procedure a time out was called to verify the correct patient, procedure, equipment, retail support associate and site/side marked as required Supporting Documentation [...] to verify the correct patient, procedure, equipment, retail support associate and site/side marked as required Supporting Documentation [...] to verify the correct patient, procedure, equipment, retail support associate and site/side marked as required Supporting Documentation [...] Surgical clara in the right upper quadrant. [id number] Procedure Note Hm Interface, Radiology Results Incoming [...] Surgical clara in the right upper quadrant. [id number] Performing Organization Address City/State/Zipcode Phone Number [facility] [address] [place] [address] * URINALYSIS, COMPLETE, WITH REFLEX TO CULTURE (10/26/2017 3:09 PM CDT) Color, UA YELLOW YELLOW [facility] Appearance CLEAR CLEAR [facility] Specific gravity, urine 1.015 1.001 - 1.035 [facility] [place] pH, urine < OR=5.0 5.0 - 8.0 [facility] [place] Glucose, urine NEGATIVE NEGATIVE [facility] [place] Bilirubin, UA NEGATIVE NEGATIVE [facility] Ketones, UA NEGATIVE NEGATIVE [facility] Occult blood, urine NEGATIVE NEGATIVE [facility] [place] Protein, UA NEGATIVE NEGATIVE [facility] [place] Nitrite, UA NEGATIVE NEGATIVE [facility] [place] Leukocyte esterase, UA TRACE (A) NEGATIVE [facility] [place] WBC, UA 0-5 < OR=5 /HPF [facility] [place] RBC, UA 0-2 < OR=2 /HPF [facility] [place] Squamous epithelial 0-5 < OR=5 /HPF [facility] cells, [facility] [place] Bacteria, UA FEW (A) NONE SEEN /HPF [facility] [place] Calcium oxalate crystals, FEW NONE OR FEW /HPF [facility]A [place] Hyaline casts, UA NONE SEEN NONE SEEN /LPF [facility] [place] Reflex CULTURE INDICATED - RESULTS TO [facility] Resulting Agency Comment Performing Organization Information: Site ID: [id number] [facility]: [facility] Address: [address] [place] [address] Director: Janiya Dias MD Performing Organization Address City/State/Zipcode Phone Number [employer] [facility] [address] [place], [place] [id number] * Measure blood pressure (10/26/2017) Narrative Performed At after 08/30/2017 Insurance Payer Benefit Subscriber ID Type Phone Address Plan / Group [employer] TEXAN[employer]US xxxxxxxxx O [facility] Advance Directives Patient has advance care planning documents, and code status on file. For more i nformation, please contact: Richard Arteaga [phone] [place] [address] Date Inactivated Comments Code Status Date Activated 04/14/2018 11:40 PM Full Code 04/11/2018 5:43 PM Code Status decision reached by: Patient
[2018-08-31 08:55] VITALS: BP 149/68
== END | disposition home or self-care (01) ==
LOC: OR 05:59
PROVIDERS: ATTEND Ophthalmology
DX: H25.11 Age-related nuclear cataract, right eye (principal); Z01.812 Encounter for preprocedural laboratory examination; I10 Essential (primary) hypertension; E78.5 Hyperlipidemia, unspecified; K21.9 Gastro-esophageal reflux disease without esophagitis; F32.9 Major depressive disorder, single episode, unspecified; Z88.2 Allergy status to sulfonamides; Z91.048 Other nonmedicinal substance allergy status; Z79.82 Long term (current) use of aspirin; Z87.891 Personal history of nicotine dependence
CPT/HCPCS: 36415; 66982; 85025; J0171; J2001; J2250; J2704; V2632